=== PATIENT | female | born 1955 | race Caucasian/White ===

== ENCOUNTER 2016-04-05 17:48 | Emergency (ER) | payer OTHER ==
[~2016-04-05 17:48] MED LIST: ADVAIR; CALCIUM WITH D PO; D 3 PO; DIAZIDE PO; LORATADINE PO; PERC5TAB8 OR; SYNTHROID PO; VIACTIN PO; VISITAB5 PO
--- NOTE | 2016-04-05 18:39 | REP ---
CT study of the cervical spine without contrast: History: Trauma. Technique: Helical scanning is acquired and overlapping 2 mm high resolution axial images were generated and reviewed at bone and soft tissue window settings. Coronal and sagittal multiplanar re-formations images are generated. CT findings: There is no evidence of cervical spine element fracture. No skull base fracture is seen. Cervical vertebral body heights are preserved. Alignment is normal. Facet joints are normally aligned bilaterally at each cervical level on multiplanar re-formations images. There is no evidence of intraspinal or paraspinal hematoma. No extra vertebral abnormality is seen. Incidental note is made of a 12 mm benign hemangioma in the left side of the C7 vertebral body. This is unchanged from the December 28, [address] There are mild degenerative disc changes at C 05/06 and C4-5. There is osteoarthritis at the C1-2 level. Impression: Negative CT study of the cervical spine without contrast. No fracture seen. Stable 12 mm benign hemangioma in the left side of the C7 vertebral body. Mild degenerative disc changes. Signed by Miguel Bradley MD 04/05/2016 06:30 P
--- NOTE | 2016-04-05 18:41 | REP ---
Head CT without contrast: History: Trauma. Comparison study: October 09, 2007. A CT findings: Bone window settings demonstrate an intact bony calvarium. There is no evidence of skull fracture or incidental bony calvarial lesion. The visualized paranasal sinuses appear clear. No intraorbital abnormality is seen. On soft tissue window setting images; the lateral, third, and fourth ventricles are normal in size and position. Augustin-white differentiation pattern is normal above and below the tentorium. There are is no evidence of intracranial hemorrhage. No mass, edema, infarction, or midline shift is seen. No extra-axial fluid collection is appreciated. Impression: Negative noncontrast head CT. Signed by Miguel Bradley MD 04/05/2016 06:32 P
[2016-04-05] MEDS ORDERED: ADACEL/BOOSTRIX VACCINE (DIPHTH/PERTUSS/ACELL/TETANUS)0.5ML SYR (90715) As Ordered ONE (19:21)
--- NOTE | 2016-04-05 19:55 | EDDOCDS ---
Physician Documentation [facility] Name: Carlee Padgett Age: 60 yrs Sex: Female : 1955 Arrival Date: 04/05/2016 Time: 17:48 Bed TR7 Private MD: Christian Ware Abdul Disposition: 04/05/16 19:21 Discharged to Home/Self Care. Impression: Laceration without foreign body of scalp, Hemangioma of other sites - 12mm benign of left side of C7 Vertbral body, Contusion of unspecified part of head. - Condition is Stable. - Discharge Instructions: Facial or Scalp Contusion, Head Injury, Adult, Stitches, [place], or Adhesive Wound Closure. - Medication Reconciliation, Local Pharmacy Hours form. - Follow up: Christian Ware; When: Call to arrange an appointment; Reason: Recheck today's complaints, Continuance of care. - Problem is new. - Symptoms have improved. - Notes: cheryle (3) removed in 7 days please Historical: - Allergies: no known allergies; - Home Meds: 1. Synthroid 175 mcg Oral tab once daily 2. Hydrochlorothiazide Unknown Oral once daily 3. Vitamin D Oral daily 4. vitamin [id number] acid oral oral once daily - PMHx: Subarachnoid Bleed; Hypertension; Hypothyroidism; - PSHx: Lumpectomy; Tubal ligation; Hysterectomy; Tonsillectomy; - Immunization history:: Last tetanus immunization: < 10 years ago. - Family history: Not pertinent. - Social history: Smoking status: Patient states was never smoker of tobacco. No barriers to communication noted, The patient speaks fluent [place], Speaks appropriately for age. - : The pt / caregiver states he / she is not on anticoagulants. Home medication list is obtained from the patient. - Exposure Risk Screening:: None identified. Vital Signs: 04/05 17:50 BP 176 / 93 RA Sitting (auto/lg); Pulse 97; Resp 18; Temp 97.6(TE); Pulse Ox 98% on ar3 R/A; Weight 86.18 kg / 189.99 lbs (R); Height 5 ft. 3 in. (160.02 cm) (R); Pain 5/10; 19:49 BP 166 / 80; Pulse 69; Resp 16; Temp 97.3(T); Pulse Ox 97% on R/A; cz 17:50 Body Mass Index 33.66 (86.18 kg, 160.02 cm) ar3 Procedures: 19:19 Laceration repair:. mo1 Laceration: 19:19 Wound Repair of 2cm ( 0.8in ) full thickness laceration to right parietal area. Linear mo1 shaped.. Distal neuro/vascular/tendon intact. Anesthesia: None with None. Wound prep: Simple cleansing by provider, Wound irrigation with saline by provider, Wound explored minimally. Skin closed with 3 thin layer [place] using Staple gun. Patient tolerated well. MDM: 18:04 CT Head Without Contrast Ordered. EDMS 18:05 CT Spine,Cervical W/o Contrast Ordered. EDMS 19:18 Tetanus- Diptheria-Acellular Pertussis 0.5 ml IM once; Routine booster 10-64yrs, >64 mo1 with child contact [facility] ordered. 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 Exp: 04/29/2018. Lot #: [id number]. } Route: IM; Site: right deltoid; Signatures: Dispatcher [employer] James Roque RN RN cz O'Hagan, Michael, PA PA mo1 Corrina Wallis RN RN ead MTDD
--- NOTE | 2016-04-05 19:55 | EDDOCDS ---
Nurse's Notes [facility] Name: Carlee Padgett Age: 60 yrs Sex: Female : 1955 Arrival Date: 04/05/2016 Time: 17:48 Bed TR7 Private MD: Christian Ware Abdul Diagnosis: Laceration without foreign body of scalp;Hemangioma of other sites-12mm benign of left side of C7 Vertbral body;Contusion of unspecified part of head Presentation: 04/05 17:55 Presenting complaint: Patient states: "moving a weight thing and it had a bar on it ead that fell and hit my head." reports incident occurred at approx 1700 today. pt has laceration to top of head, bleeding controlled by pt. pt denies LOC. Denies headache or dizziness. Adult Sepsis Screening: The patient does not have new or worsening altered mentation. Patient's respiratory rate is less than 22. Systolic blood pressure is greater than 100. Patient has a qSOFA score of 0- Negative Sepsis Screen. Suicide/Homicide risk assessment- the patient denies having any suicidal and/or homicidal ideations and does not present with any other emotional, behavioral or mental health complaints. Status: Patient is not a services tech or dependent. Transition of care: patient was not received from another setting of care. 17:55 Acuity: PROSPER Level 4 ead 17:55 Method Of Arrival: Walkin/Carried/Asstd ead Triage Assessment: 17:59 General: Appears in no apparent distress, comfortable, well nourished, well groomed, ead Behavior is appropriate for age, cooperative, pleasant. Pain: Location: top of head Pain currently is 5 out of 10 on a pain scale. HIV screening NA for this visit Offered previously. Neurological: Level of Consciousness is awake, alert, obeys commands, Oriented to person, place, time. Neurological: Denies dizziness, headache. Respiratory: Airway is patent Respiratory effort is even, unlabored. Derm: Skin is pink, warm & dry. laceration to top of head. Historical: - Allergies: no known allergies; - Home Meds: 1. Synthroid 175 mcg Oral tab once daily 2. Hydrochlorothiazide Unknown Oral once daily 3. Vitamin D Oral daily 4. vitamin L80-lfazv acid oral oral once daily - PMHx: Subarachnoid Bleed; Hypertension; Hypothyroidism; - PSHx: Lumpectomy; Tubal ligation; Hysterectomy; Tonsillectomy; - Immunization history:: Last tetanus immunization: < 10 years ago. - Family history: Not pertinent. - Social history: Smoking status: Patient states was never smoker of tobacco. No barriers to communication noted, The patient speaks fluent Luxembourgish, Speaks appropriately for age. - : The pt / caregiver states he / she is not on anticoagulants. Home medication list is obtained from the patient. - Exposure Risk Screening:: None identified. Screenin:52 Screening information is obtained from the patient. Fall risk: No risks identified. cz Assistance ADL's: requires no assistance with activities of daily living. Abuse/DV Screen: The patient / caregiver reports he/she is: not in a situation that causes fear, pain or injury. Nutritional screening: No deficits noted. home support is adequate. Assessment: 19:52 Reassessment: alert female with head laceration repaired with cheryle no bleeding no cz complaints. Vital Signs: 17:50 BP 176 / 93 RA Sitting (auto/lg); Pulse 97; Resp 18; Temp 97.6(TE); Pulse Ox 98% on ar3 R/A; Weight 86.18 kg (R); Height 5 ft. 3 in. (160.02 cm) (R); Pain 5/10; 19:49 BP 166 / 80; Pulse 69; Resp 16; Temp 97.3(T); Pulse Ox 97% on R/A; cz 17:50 Body Mass Index 33.66 (86.18 kg, 160.02 cm) ar3 Vitals: 17:54 Log In Time: April 05, 2016 at 17:48. lr2 ED Course: 17:50 Patient visited by Hien Rodriguez PCA. ar3 17:50 Christian Ware is Private Physician. ar3 17:50 Patient moved to Waiting ar3 17:52 Patient visited by Hien Rodriguez PCA. ar3 17:52 Patient moved to Pre RCE ar3 17:56 Triage Initiated ead 18:44 Patient moved to Triage 2 ar3 18:55 Assist provider with laceration repair using cheryle. cz 19:05 Yoseph Lees PA is PHCP. mo1 19:05 Adithya Fuentes DO is Attending Physician. mo1 19:18 Patient visited by Yoseph Lees PA. mo1 19:19 Patient moved to cz 19:21 Christian Ware is Referral Physician. mo1 19:22 CT Spine,Cervical W/o Contrast Returned. EDMS 19:22 CT Head Without Contrast Returned. EDMS 19:48 Patient moved to TR7 cz 19:52 The patient / caregiver is instructed regarding the plan of care and ED course. cz 19:52 No IV's were initiated during this patient's visit. 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 Exp: 04/29/2018. Lot #: [id number]. } Route: IM; Site: right deltoid; Order Results: Radiology Order: CT Head Without Contrast Test: CT Head Without Contrast REASON FOR EXAMINATION: Trauma; Head CT without contrast:; ; History: Trauma.; ; Comparison study: October 09, 2007. A; ; CT findings: Bone window settings demonstrate an intact bony calvarium. There; is no evidence of skull fracture or incidental bony calvarial lesion. The; visualized paranasal sinuses appear clear. No intraorbital abnormality is seen.; On soft tissue window setting images; the lateral, third, and fourth ventricles; are normal in size and position. Augustin-white differentiation pattern is normal; above and below the tentorium. There are is no evidence of intracranial; hemorrhage. No mass, edema, infarction, or midline shift is seen. No; extra-axial fluid collection is appreciated.; ; Impression:; ; Negative noncontrast head CT.; ; ; Signed by; Miguel Bradley MD 04/05/2016 06:32 P; Radiology Order: CT Spine,Cervical W/o Contrast Test: CT Spine,Cervical W/o Contrast REASON FOR EXAMINATION: Trauma; CT study of the cervical spine without contrast:; ; History: Trauma.; ; Technique: Helical scanning is acquired and overlapping 2 mm high resolution; axial images were generated and reviewed at bone and soft tissue window settings.; Coronal and sagittal multiplanar re-formations images are generated.; ; CT findings: There is no evidence of cervical spine element fracture. No skull; base fracture is seen. Cervical vertebral body heights are preserved. Alignment; is normal. Facet joints are normally aligned bilaterally at each cervical level; on multiplanar re-formations images. There is no evidence of intraspinal or; paraspinal hematoma. No extra vertebral abnormality is seen. Incidental note is; made of a 12 mm benign hemangioma in the left side of the C7 vertebral body.; This is unchanged from the December 28, [address] There are mild; degenerative disc changes at C 05/06 and C4-5. There is osteoarthritis at the; C1-2 level.; ; Impression:; ; Negative CT study of the cervical spine without contrast. No fracture seen.; Stable 12 mm benign hemangioma in the left side of the C7 vertebral body. Mild; degenerative disc changes.; ; ; Signed by; Miguel Bradley MD 04/05/2016 06:30 P; Outcome: 18:55 Discharge Assessment: Patient awake, alert and oriented x 3. No cognitive and/or cz functional deficits noted. Patient verbalized understanding of disposition instructions. patient administered narcotics - no. The following High Risk Discharge criteria are identified: None. Discharged to home ambulatory, with family. Condition: stable. Discharge instructions given to patient, Instructed on discharge instructions, follow up and referral plans. Demonstrated understanding of instructions, Pt was receptive of discharge instructions/ teaching. CT Study completed. Property :Personal belongings accompany Pt. 19:21 Discharge ordered by Provider. mo1 19:54 Patient left the ED. cz Signatures: Dispatcher [employer] EDMS James Delarosa, RN Hien Aleman, [employer] MEASURES SEALER Yoseph Nunez PA PA mo1 Corrina Wallis,RN RN Samantha Enrique2 MTDD
--- NOTE | 2016-04-07 20:55 | EDDOCDS ---
Nurse's Notes [facility] Name: Carlee Padgett Age: 60 yrs Sex: Female : 1955 Arrival Date: 04/05/2016 Time: 17:48 Bed TR7 Private MD: Christian Ware Abdul Diagnosis: Laceration without foreign body of scalp;Hemangioma of other sites-12mm benign of left side of C7 Vertbral body;Contusion of unspecified part of head Presentation: 04/05 17:55 Presenting complaint: Patient states: "moving a weight thing and it had a bar on it ead that fell and hit my head." reports incident occurred at approx 1700 today. pt has laceration to top of head, bleeding controlled by pt. pt denies LOC. Denies headache or dizziness. Adult Sepsis Screening: The patient does not have new or worsening altered mentation. Patient's respiratory rate is less than 22. Systolic blood pressure is greater than 100. Patient has a qSOFA score of 0- Negative Sepsis Screen. Suicide/Homicide risk assessment- the patient denies having any suicidal and/or homicidal ideations and does not present with any other emotional, behavioral or mental health complaints. 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 Transition of care: patient was not received from another setting of care. 17:55 Acuity: PROSPER Level 4 ead 17:55 Method Of Arrival: Walkin/Carried/Asstd ead Triage Assessment: 17:59 General: Appears in no apparent distress, comfortable, well nourished, well groomed, ead Behavior is appropriate for age, cooperative, pleasant. Pain: Location: top of head Pain currently is 5 out of 10 on a pain scale. HIV screening NA for this visit Offered previously. Neurological: Level of Consciousness is awake, alert, obeys commands, Oriented to person, place, time. Neurological: Denies dizziness, headache. Respiratory: Airway is patent Respiratory effort is even, unlabored. Derm: Skin is pink, warm & dry. laceration to top of head. Historical: - Allergies: no known allergies; - Home Meds: 1. Synthroid 175 mcg Oral tab once daily 2. Hydrochlorothiazide Unknown Oral once daily 3. Vitamin D Oral daily 4. vitamin E05-tblgb acid oral oral once daily - PMHx: Subarachnoid Bleed; Hypertension; Hypothyroidism; - PSHx: Lumpectomy; Tubal ligation; Hysterectomy; Tonsillectomy; - Immunization history:: Last tetanus immunization: < 10 years ago. - Family history: Not pertinent. - Social history: Smoking status: Patient states was never smoker of tobacco. No barriers to communication noted, The patient speaks fluent Latvian, Speaks appropriately for age. - : The pt / caregiver states he / she is not on anticoagulants. Home medication list is obtained from the patient. - Exposure Risk Screening:: None identified. Screenin:52 Screening information is obtained from the patient. Fall risk: No risks identified. cz Assistance ADL's: requires no assistance with activities of daily living. Abuse/DV Screen: The patient / caregiver reports he/she is: not in a situation that causes fear, pain or injury. Nutritional screening: No deficits noted. home support is adequate. Assessment: 19:52 Reassessment: alert female with head laceration repaired with cheryle no bleeding no cz complaints. Vital Signs: 17:50 BP 176 / 93 RA Sitting (auto/lg); Pulse 97; Resp 18; Temp 97.6(TE); Pulse Ox 98% on ar3 R/A; Weight 86.18 kg (R); Height 5 ft. 3 in. (160.02 cm) (R); Pain 5/10; 19:49 BP 166 / 80; Pulse 69; Resp 16; Temp 97.3(T); Pulse Ox 97% on R/A; cz 17:50 Body Mass Index 33.66 (86.18 kg, 160.02 cm) ar3 Vitals: 17:54 Log In Time: April 05, 2016 at 17:48. lr2 ED Course: 17:50 Patient visited by Hien Rodriguez PCA. ar3 17:50 Christian Ware is Private Physician. ar3 17:50 Patient moved to Waiting ar3 17:52 Patient visited by Hien Rodriguez PCA. ar3 17:52 Patient moved to Pre RCE ar3 17:56 Triage Initiated ead 18:44 Patient moved to Triage 2 ar3 18:55 Assist provider with laceration repair using cheryle. cz 19:05 Yoseph Lees PA is PHCP. mo1 19:05 Adithya Fuentes DO is Attending Physician. mo1 19:18 Patient visited by Yoseph Lees PA. mo1 19:19 Patient moved to cz 19:21 Christian Ware is Referral Physician. mo1 19:22 CT Spine,Cervical W/o Contrast Returned. EDMS 19:22 CT Head Without Contrast Returned. EDMS 19:48 Patient moved to TR7 cz 19:52 The patient / caregiver is instructed regarding the plan of care and ED course. cz 19:52 No IV's were initiated during this patient's visit. cz 21:15 [facility] Payment Agreement was scanned into [employer] [facility] and attached to record. 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 Exp: 04/29/2018. Lot #: [id number]. } Route: IM; Site: right deltoid; Order Results: Radiology Order: CT Head Without Contrast Test: CT Head Without Contrast REASON FOR EXAMINATION: Trauma; Head CT without contrast:; ; History: Trauma.; ; Comparison study: October 09, 2007. A; ; CT findings: Bone window settings demonstrate an intact bony calvarium. There; is no evidence of skull fracture or incidental bony calvarial lesion. The; visualized paranasal sinuses appear clear. No intraorbital abnormality is seen.; On soft tissue window setting images; the lateral, third, and fourth ventricles; are normal in size and position. Augustin-white differentiation pattern is normal; above and below the tentorium. There are is no evidence of intracranial; hemorrhage. No mass, edema, infarction, or midline shift is seen. No; extra-axial fluid collection is appreciated.; ; Impression:; ; Negative noncontrast head CT.; ; ; Signed by; Miguel Bradley MD 04/05/2016 06:32 P; Radiology Order: CT Spine,Cervical W/o Contrast Test: CT Spine,Cervical W/o Contrast REASON FOR EXAMINATION: Trauma; CT study of the cervical spine without contrast:; ; History: Trauma.; ; Technique: Helical scanning is acquired and overlapping 2 mm high resolution; axial images were generated and reviewed at bone and soft tissue window settings.; Coronal and sagittal multiplanar re-formations images are generated.; ; CT findings: There is no evidence of cervical spine element fracture. No skull; base fracture is seen. Cervical vertebral body heights are preserved. Alignment; is normal. Facet joints are normally aligned bilaterally at each cervical level; on multiplanar re-formations images. There is no evidence of intraspinal or; paraspinal hematoma. No extra vertebral abnormality is seen. Incidental note is; made of a 12 mm benign hemangioma in the left side of the C7 vertebral body.; This is unchanged from the December 28, [address] There are mild; degenerative disc changes at C 05/06 and C4-5. There is osteoarthritis at the; C1-2 level.; ; Impression:; ; Negative CT study of the cervical spine without contrast. No fracture seen.; Stable 12 mm benign hemangioma in the left side of the C7 vertebral body. Mild; degenerative disc changes.; ; ; Signed by; Miguel Bradley MD 04/05/2016 06:30 P; Outcome: 18:55 Discharge Assessment: Patient awake, alert and oriented x 3. No cognitive and/or cz functional deficits noted. Patient verbalized understanding of disposition instructions. patient administered narcotics - no. The following High Risk Discharge criteria are identified: None. Discharged to home ambulatory, with family. Condition: stable. Discharge instructions given to patient, Instructed on discharge instructions, follow up and referral plans. Demonstrated understanding of instructions, Pt was receptive of discharge instructions/ teaching. CT Study completed. Property :Personal belongings accompany Pt. 19:21 Discharge ordered by Provider. mo1 19:54 Patient left the ED. cz Signatures: Dispatcher [employer] EDMS James Delarosa RN RN Hien Gallo, WAREHOUSE RECORD CLERK WAREHOUSE RECORD CLERK ar3 Yoseph Lees, PA PA mo1 Corrina Wallis,RN RN Eleanor Tai Laura lr2 Chart Complete MTDD
--- NOTE | 2016-04-07 20:55 | EDDOCDS ---
Physician Documentation [facility] Name: Carlee Padgett Age: 60 yrs Sex: Female : 1955 Arrival Date: 04/05/2016 Time: 17:48 Bed TR7 Private MD: Christian Ware Abdul Disposition: 04/05/16 19:21 Discharged to Home/Self Care. Impression: Laceration without foreign body of scalp, Hemangioma of other sites - 12mm benign of left side of C7 Vertbral body, Contusion of unspecified part of head. - Condition is Stable. - Discharge Instructions: Facial or Scalp Contusion, Head Injury, Adult, Stitches, Maxwell, or Adhesive Wound Closure. - Medication Reconciliation, Local Pharmacy Hours form. - Follow up: Christian Ware; When: Call to arrange an appointment; Reason: Recheck today's complaints, Continuance of care. - Problem is new. - Symptoms have improved. - Notes: cheryle (3) removed in 7 days please Historical: - Allergies: no known allergies; - Home Meds: 1. Synthroid 175 mcg Oral tab once daily 2. Hydrochlorothiazide Unknown Oral once daily 3. Vitamin D Oral daily 4. vitamin S74-koozh acid oral oral once daily - PMHx: Subarachnoid Bleed; Hypertension; Hypothyroidism; - PSHx: Lumpectomy; Tubal ligation; Hysterectomy; Tonsillectomy; - Immunization history:: Last tetanus immunization: < 10 years ago. - Family history: Not pertinent. - Social history: Smoking status: Patient states was never smoker of tobacco. No barriers to communication noted, The patient speaks fluent Burkinan, Speaks appropriately for age. - : The pt / caregiver states he / she is not on anticoagulants. Home medication list is obtained from the patient. - Exposure Risk Screening:: None identified. Vital Signs: 04/05 17:50 BP 176 / 93 RA Sitting (auto/lg); Pulse 97; Resp 18; Temp 97.6(TE); Pulse Ox 98% on ar3 R/A; Weight 86.18 kg / 189.99 lbs (R); Height 5 ft. 3 in. (160.02 cm) (R); Pain 5/10; 19:49 BP 166 / 80; Pulse 69; Resp 16; Temp 97.3(T); Pulse Ox 97% on R/A; cz 17:50 Body Mass Index 33.66 (86.18 kg, 160.02 cm) ar3 Procedures: 19:19 Laceration repair:. mo1 Laceration: 19:19 Wound Repair of 2cm ( 0.8in ) full thickness laceration to right parietal area. Linear mo1 shaped.. Distal neuro/vascular/tendon intact. Anesthesia: None with None. Wound prep: Simple cleansing by provider, Wound irrigation with saline by provider, Wound explored minimally. Skin closed with 3 thin layer Maxwell using Staple gun. Patient tolerated well. MDM: 18:04 CT Head Without Contrast Ordered. EDMS 18:05 CT Spine,Cervical W/o Contrast Ordered. EDMS 19:18 Tetanus- Diptheria-Acellular Pertussis 0.5 ml IM once; Routine booster 10-64yrs, >64 mo1 with child contact [employer] ordered. 21:15 [facility] Payment Agreement was scanned into [employer] and attached to record. erik 21:15 Financial registration complete. gjb Administered Medications: 19:23 Drug: Tetanus- Diptheria-Acellular Pertussis 0.5 ml [diphth,pertussis(acel),tetanus 2.5 cz Lf unit-8 mcg-5 Lf/0.5mL IM syringe (0.5 mL)] {Pelt Dropper: [employer]. Exp: 04/29/2018. Lot #: [id number]. } Route: IM; Site: right deltoid; Signatures: [facility] James Delarosa RN RN cz O'Hagan, Michael, PA PA mo1 Corrina Wallis,RN Eleanor Silva The chart was reviewed and I authenticate all verbal orders and agree with the evaluation and treatment provided.Attachments: 21:15 [facility] Payment Agreement gjb Chart Complete MTDD
--- NOTE | 2016-04-07 20:55 | EDDOCDS ---
Physician Documentation [facility] Name: Carlee Padgett Age: 60 yrs Sex: Female : 1955 Arrival Date: 04/05/2016 Time: 17:48 Bed TR7 Private MD: Christian Ware Abdul Disposition: 04/05/16 19:21 Discharged to Home/Self Care. Impression: Laceration without foreign body of scalp, Hemangioma of other sites - 12mm benign of left side of C7 Vertbral body, Contusion of unspecified part of head. - Condition is Stable. - Discharge Instructions: Facial or Scalp Contusion, Head Injury, Adult, Stitches, [place], or Adhesive Wound Closure. - Medication Reconciliation, Local Pharmacy Hours form. - Follow up: Christian Ware; When: Call to arrange an appointment; Reason: Recheck today's complaints, Continuance of care. - Problem is new. - Symptoms have improved. - Notes: cheryle (3) removed in 7 days please Historical: - Allergies: no known allergies; - Home Meds: 1. Synthroid 175 mcg Oral tab once daily 2. Hydrochlorothiazide Unknown Oral once daily 3. Vitamin D Oral daily 4. vitamin H10-srxfj acid oral oral once daily - PMHx: Subarachnoid Bleed; Hypertension; Hypothyroidism; - PSHx: Lumpectomy; Tubal ligation; Hysterectomy; Tonsillectomy; - Immunization history:: Last tetanus immunization: < 10 years ago. - Family history: Not pertinent. - Social history: Smoking status: Patient states was never smoker of tobacco. No barriers to communication noted, The patient speaks fluent [place], Speaks appropriately for age. - : The pt / caregiver states he / she is not on anticoagulants. Home medication list is obtained from the patient. - Exposure Risk Screening:: None identified. Vital Signs: 04/05 17:50 BP 176 / 93 RA Sitting (auto/lg); Pulse 97; Resp 18; Temp 97.6(TE); Pulse Ox 98% on ar3 R/A; Weight 86.18 kg / 189.99 lbs (R); Height 5 ft. 3 in. (160.02 cm) (R); Pain 5/10; 19:49 BP 166 / 80; Pulse 69; Resp 16; Temp 97.3(T); Pulse Ox 97% on R/A; cz 17:50 Body Mass Index 33.66 (86.18 kg, 160.02 cm) ar3 Procedures: 19:19 Laceration repair:. mo1 Laceration: 19:19 Wound Repair of 2cm ( 0.8in ) full thickness laceration to right parietal area. Linear mo1 shaped.. Distal neuro/vascular/tendon intact. Anesthesia: None with None. Wound prep: Simple cleansing by provider, Wound irrigation with saline by provider, Wound explored minimally. Skin closed with 3 thin layer [place] using Staple gun. Patient tolerated well. MDM: 18:04 CT Head Without Contrast Ordered. EDMS 18:05 CT Spine,Cervical W/o Contrast Ordered. EDMS 19:18 Tetanus- Diptheria-Acellular Pertussis 0.5 ml IM once; Routine booster 10-64yrs, >64 mo1 with child contact [place] [employer] ordered. 21:15 [facility] Payment Agreement was scanned into [employer] and attached to record. erik 21:15 Financial registration complete. 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 Exp: 04/29/2018. Lot #: [id number]. } Route: IM; Site: right deltoid; Signatures: [facility] James Delarosa RN RN cz O'Hagan, Michael, PA PA mo1 Corrina Wallis,RN Eleanor Silva The chart was reviewed and I authenticate all verbal orders and agree with the evaluation and treatment provided.Attachments: 21:15 [facility] Payment Agreement gjb Chart Complete MTDD
== END 2016-04-05 19:54 | disposition home or self-care (01) ==
LOC: M ED 17:48
DX: S01.01XA Laceration without foreign body of scalp, initial encounter (principal); S00.03XA Contusion of scalp, initial encounter; I10 Essential (primary) hypertension; E03.9 Hypothyroidism, unspecified; Z79.899 Other long term (current) drug therapy; W20.8XXA Other cause of strike by thrown, projected or falling object, initial encounter; Y92.099 Unspecified place in other non-institutional residence as the place of occurrence of the external cause; Y93.89 Activity, other specified; Y99.9 Unspecified external cause status

== ENCOUNTER → 2016-12-22 | Outpatient (CLI) | payer OTHER ==
[2016-12-22 09:46] LABS: MEAN CORPUSCULAR HEMOGLOBIN 29.7 pg (27.0-33.0); MEAN CORPUSCULAR HGB CONC 33.2 g/dl (32.0-36.5); MEAN CORPUSCULAR VOLUME 89.4 fl (80.0-96.0); PLATELET COUNT, AUTOMATED 267 10^3/uL (150-450); RED CELL DISTRIBUTION WIDTH 12.3 % (11.5-14.5); WHITE BLOOD COUNT 4.7 10^3/uL (4.0-10.0)
--- NOTE | 2016-12-22 09:50 | REP ---
Clinical: Hypertension . Comparison: 03/11/2015 . Technique: PA and lateral. Findings: The mediastinum and cardiac silhouette are normal. The lung de leon are clear and without acute consolidation, effusion, or pneumothorax. The skeletal structures are intact and normal. Impression: 1. No acute cardiopulmonary process. Signed by Humberto Wright MD 12/22/2016 09:41 A
[2016-12-22 10:17] LABS: ALBUMIN 3.9 GM/DL (3.2-5.2); ALBUMIN/GLOBULIN RATIO 1.34 (1.00-1.93); ALKALINE PHOSPHATASE 88 U/L (45-117); ALT/SGPT 26 U/L (12-78); ANION GAP 4 MEQ/L (8-16); AST/SGOT 14 U/L (7-37); BILIRUBIN,TOTAL 0.4 MG/DL (0.2-1.0); BLOOD UREA NITROGEN 19 MG/DL (7-18); CALCIUM LEVEL 9.2 MG/DL (8.8-10.2); CARBON DIOXIDE LEVEL 33 MEQ/L (21-32); CHLORIDE LEVEL 104 MEQ/L (98-107); CHOLESTEROL LEVEL 210 MG/DL (<200); CREATININE FOR GFR 0.76 MG/DL (0.55-1.02); GLOMERULAR FILTRATION RATE > 60.0 (>45); GLUCOSE, FASTING 94 MG/DL (80-110); POTASSIUM SERUM 3.7 MEQ/L (3.5-5.1); SODIUM LEVEL 141 MEQ/L (136-145); TOTAL PROTEIN 6.8 GM/DL (6.4-8.2); TRIGLYCERIDES LEVEL 104 MG/DL (<150)
--- NOTE | 2016-12-23 00:58 | ECGEPIP ---
Stationary ECG Study [facility] Test Date: 2016-12-22 Pat Name: JOHN MARTIN Department: Room: - Gender: F Substance Abuse Nurse: ROSAURA : 1955 Requested By: Christian Washburn Order Number: [id number] Reading MD: Dino White Measurements Intervals [place] Rate: 67 P: 35 MS: 166 QRS: 4 QRSD: 79 T: -1 QT: 399 QTc: 423 Interpretive Statements SINUS RHYTHM Nonspecific ST-T abnormality Compared to the last 3 tracings in the system, no significant changes Electronically Signed On 12-23-2016 0:58:11 EST by Dino White
== END ==
LOC: M LAB 09:05
PROVIDERS: ATTEND Family Medicine
DX: I10 Essential (primary) hypertension (principal)

== ENCOUNTER 2017-01-17 09:31 | Day surgery (SDC) | payer OTHER ==
[~2017-01-17] VITALS: Ht 160 cm; Wt 92.0 kg
[2017-01-17] MEDS ORDERED: LEVO175T2 (09:39)
[2017-01-17] MEDS ORDERED: TRIA37.53 (09:39)
[2017-01-17] MEDS ORDERED: NS 1,000 ML IV ONE (10:00)
[2017-01-17] MEDS ORDERED: ONDANSETRON 4MG/2ML VIAL (J2405) IV ONE (10:00)
--- NOTE | 2017-01-17 10:30 | REP ---
CT of the abdomen pelvis without IV or bowel contrast: There are no comparisons. There is a 7 x 10 mm calculus in the right ureter just inferior to the right sacroiliac articulation. There is marked right hydronephrosis and hydroureter. There is no right renal calculus. There is a left renal nonobstructive 7 mm calculus posteriorly at the mid pole. There is no left ureteral calculus. There is a 2.7 cm left renal cortical cysts. The bladder is incompletely distended and the bladder wall cannot be accurately evaluated by CT. No bladder calculi are identified. There is a hysterectomy. The vaginal cuff and adnexa are unremarkable. Surgical clips in the adnexa bilaterally. The visualized lung de leon are unremarkable. The unenhanced hepatic parenchyma is homogeneous except for a nonspecific in 9 mm hypodensity in the right lobe, likely a cyst. The gallbladder, pancreas, spleen, adrenals and abdominal aorta are unremarkable. The bowel and mesentery are unremarkable. Pelvis: There is no ascites or adenopathy. The pelvic bowel loops are unremarkable. A hysterectomy and bilateral adnexal surgical clips are identified as described previously. Impression: There is a 7 x 10 ml calcification in the distal right ureter and right hydronephrosis. There are no right renal calculi. There is a 7 ml nonobstructive left renal calculus. No left ureteral calculi. No bladder calculi. There is a left renal cortical cyst. There is a hysterectomy and there are surgical clips in the adnexa bilaterally. Signed by Jarvis Anne MD 01/17/2017 10:22 A
[2017-01-17 10:42] LABS: BASO % 0.3 % (0.0-1.0); EOS # 0.1 10^3/uL (0.0-0.50); EOS % 0.6 % (0.0-3.0); IMMATURE GRANULOCYTE % 0.3 % (0-0); LYMPH # 0.8 10^3/uL (1.5-4.5); MEAN CORPUSCULAR HEMOGLOBIN 30.3 pg (27.0-33.0); MEAN CORPUSCULAR HGB CONC 34.2 g/dl (32.0-36.5); MEAN CORPUSCULAR VOLUME 88.6 fl (80.0-96.0); MONO # 0.5 10^3/uL (0.0-0.8); MONO % 5.6 % (0.0-5.0); NEUTROPHILS # 8.2 10^3/uL (1.8-7.7); NEUTROPHILS % 85.2 % (36.0-66.0); PLATELET COUNT, AUTOMATED 312 10^3/uL (150-450); RED CELL DISTRIBUTION WIDTH 12.4 % (11.5-14.5); WHITE BLOOD COUNT 9.7 10^3/uL (4.0-10.0)
[2017-01-17] MEDS: MORPHINE 2 MG/ML 1ML SYRINGE IV PRN ×2 (10:45→12:23)
[2017-01-17 12:01] LABS: ANION GAP 7 MEQ/L (8-16); BLOOD UREA NITROGEN 22 MG/DL (7-18); CALCIUM LEVEL 9.1 MG/DL (8.8-10.2); CARBON DIOXIDE LEVEL 29 MEQ/L (21-32); CHLORIDE LEVEL 104 MEQ/L (98-107); GLOMERULAR FILTRATION RATE > 60.0 (>45); GLUCOSE, FASTING 129 MG/DL (80-110); SODIUM LEVEL 140 MEQ/L (136-145)
--- NOTE | 2017-01-17 14:31 | ER ---
DATE OF CONSULTATION: 01/17/2017 REASON FOR CONSULTATION: Obstructing right ureteral calculi measuring 7 x 10 mm. HISTORY OF PRESENT ILLNESS: The patient is a 61-year-old female who came through the emergency room this morning with very severe right flank pain and vomiting. The pain began Tuesday morning, but seemed to go away. It started this morning and was unremitting in nature so she came to the emergency room. A CT scan of the abdomen and pelvis was done which shows small bilateral nephrolithiasis but a 7 x 10 calcification in the distal right ureter with right hydronephrosis. There is a 7 mm nonobstructing left renal calculi and also a 2.7 cm left renal cortical cyst. The patient does have a history of a kidney stone back in 1990 where she underwent ureteroscopy and stone basketing. A stent was not placed post procedurally and it sounds like she had obstructive uropathy and became septic. She has not had any stones since then. The patient denies any gross hematuria, dysuria, problems with recurrent urinary tract infections, or other irritative or obstructive voiding symptoms. PAST MEDICAL HISTORY: High blood pressure. Hypothyroidism. Breast cancer status post radiation and chemotherapy Thymoma. Corneal dysplasia. PAST SURGICAL HISTORY: Thymoma removal. Hysterectomy. Left lumpectomy. MEDICATIONS: Synthroid and Thiazide. ALLERGIES: CODEINE makes her nauseous. SOCIAL HISTORY: She quit smoking cigarettes and 1990. She is . She drinks alcohol rarely. FAMILY HISTORY: Noncontributory. PHYSICAL EXAMINATION: This is a well-developed, well-nourished female in the emergency room lying on a bed in no apparent respiratory distress. She is alert and oriented times three. She is afebrile. Her pulse is 54. Her blood pressure is 126/71 and her respiratory rate is 16. Her head is normocephalic, atraumatic. Her eyes are pupils equal, round, and reactive to light. Her neck is supple. There is no significant supraclavicular or cervical adenopathy. Her heart has a regular rate and rhythm. Her lungs are clear to auscultation and percussion. She has no CVA tenderness on exam now and her abdomen is otherwise soft and nontender without any significant rebound, guarding or tenderness. Her extremities show no cyanosis, clubbing or edema. LABORATORY DATA: Her white blood count is 9.7. Her H H is 12.8/37.4 and her platelets are 312. Her BUN is 22 and her creatinine is 0.9 and a fasting glucose was 129. A urinalysis showed a 5 red blood cells and one white blood cell per high power field. CT scan of the abdomen and pelvis showed a 7 x 10 mm distal right stone and a 7 mm nonobstructive left renal stone with a 2.7 cm left simple renal cortical cyst. DISCUSSION: I discussed these findings at length with Carlee her family in the emergency room today. We discussed different options including watchful waiting to see whether the stone could pass but because of its size, it has a very low likelihood. We also discussed bringing her to the operating room for right ureteroscopy, laser lithotripsy, and stent placement. She opted for surgical management. We discussed exactly how the procedure is done and what to expect both pre and post procedurally. We discussed the major risks of the procedure which included but was not limited to the risks of general anesthesia, reactions to medication, bleeding, infection, injury to the system inability to remove the stone and the need for further surgical management. The patient also understands and stent will be placed and that this can be uncomfortable post procedurally. She also understands the need for getting the stent removed in the office. IMPRESSION: 1. 10 mm distal right ureteral stone with hydroureteronephrosis. 2. Nonobstructing left renal stone. 3. Benign renal cortical cyst. 4. Past medical history of breast cancer but in remission for the left 12 years, high blood pressure, hypothyroidism, and removal of the benign thymoma. PLAN: The patient will go to the operating room for cystoscopy, right ureteroscopy, laser lithotripsy and stent placement.
[2017-01-17] MEDS ORDERED: MAGN1TAB25 PO (14:48)
[2017-01-17] MEDS ORDERED: CALC600T60 PO (14:48)
[2017-01-17] MEDS ORDERED: VITA-112 PO (14:48)
[2017-01-17] MEDS ORDERED: GLUC1CAP10 PO (14:48)
[2017-01-17] MEDS ORDERED: LEVO175T2 PO (14:48)
[2017-01-17] MEDS ORDERED: TRIA37.53 PO (14:48)
[2017-01-17] MEDS ORDERED: OCUVTAB PO (14:48)
[2017-01-17 17:20] VITALS: BP 150/82
[2017-01-17 19:30] VITALS: BP 158/79
[2017-01-17] MEDS ORDERED: LIDOCAINE 2% INJ 100 MG/5 ML SDV (FOR ANES.) As Ordered ONE (20:54)
[2017-01-17] MEDS ORDERED: PROPOFOL 200 MG/20 ML VIAL As Ordered ONE (20:54)
[2017-01-17] MEDS ORDERED: MIDAZOLAM INJ 2 MG/2 ML VIAL (J2250) As Ordered ONE (20:54)
[2017-01-17] MEDS ORDERED: fentaNYL 100 MCG/2 ML INJECTION (J3010) As Ordered ONE (20:54)
[2017-01-17] MEDS ORDERED: ceFAZolin 2 GM/D5W 50 ML IV BAG (J0690 PER 500MG) As Ordered ONE (21:01)
[2017-01-17] MEDS ORDERED: CONRAY-60 60% 50ML VIAL (Q9961) As Ordered ONE (21:01)
[2017-01-17] MEDS ORDERED: ONDANSETRON 4MG/2ML VIAL (J2405) As Ordered ONE (21:34)
[2017-01-17] MEDS ORDERED: LR 1,000 ML IV SCH (22:30)
[2017-01-17] MEDS ORDERED: ONDANSETRON 4MG/2ML VIAL (J2405) IV PRN (22:30)
[2017-01-17] MEDS ORDERED: fentaNYL 100 MCG/2 ML INJECTION (J3010) IV PRN (22:30)
[2017-01-17] MEDS ORDERED: PERCOCET 5MG/325MG TAB PO PRN (22:30)
[2017-01-17 23:10] VITALS: BP 171/82
[2017-01-17 23:45] VITALS: BP 164/87
[2017-01-18] MEDS ORDERED: PERCOCET 5MG/325MG TAB PO PRN ×2
[2017-01-18 01:00] VITALS: BP 152/75
[2017-01-18 04:00] VITALS: BP 125/65
--- NOTE | 2017-01-18 07:19 | RO ---
DATE OF PROCEDURE: 01/17/2017 PREOPERATIVE DIAGNOSIS: 10 x 7 mm right sacroiliac area stone. POSTOPERATIVE DIAGNOSIS: 10 x 7 mm right sacroiliac area stone. PROCEDURE: Cystoscopy, right ureteroscopy, right laser lithotripsy and right ureteral stent placement. SURGEON: Jaci Durant MD TANBARK PEELER: ANESTHESIA: General. MEDICATIONS: Ancef 2 grams preoperatively. DRAINS: #6-Burmese double-J ureteral stent. SPECIMENS: None. HISTORY OF PRESENT ILLNESS: The patient is a 61-year-old female who came through the emergency room today complaining of severe right flank pain. A CT scan of the abdomen and pelvis was done which showed a 10 x 7 mm right ureteral stone just inferior to the right sacroiliac articulation. She had a history of needing ureteroscopy many years ago and it sounds like there was a problem surgically and she ended up with septicemia and was in the hospital for quite some time. At this point, because of the size of the stone, it was recommended that the patient be brought to the operating room for a cystoscopy, right ureteroscopy and right laser lithotripsy with attempted stone basketing. All different options, alternatives, risks, and benefits were discussed and informed consent was obtained in both verbal and written form. PROCEDURE: The patient was brought into the operating room. Sequential compression devices were in place and preoperative antibiotics were given. Anesthesia was induced. She was then placed in low lithotomy position and careful attention was paid that her pressure points were well padded and protected. She was then prepped and draped in the usual fashion. Next, a #21-Burmese cystoscope was inserted. The urethra was noted to be open without any evidence of lesions or strictures. Upon entering the bladder both ureteral orifices were seen. There was no evidence of stones, erythematous patches, lesions or other significant abnormalities. At this point a 0.035 guidewire was placed in the right ureteral orifice up to the kidney and this was left as a safety wire. Next, a rigid ureteroscope was passed. The distal ureter right under where the sacroiliac notch is, showed very significant scarring and possibly even mild ureteral obstruction. I was able to push through this with the ureteroscope, but did have some subureteral mucosal damage, then the stone was well seen right above this area. At this point, a laser fiber was placed and using the dusting setting the stone was broken into multiple very small fragments. I did attempt to stone basket this and pull is through, but that area of scarring was too small to allow the stone to come through. I went back in with a laser fiber and just broke the stone into teeny tiny pieces that were all able to pass. It is possible that some of the stone fragments did go into the ureteral mucosa submucosally, so these may be seen on CT scan in the future. At this point, a #6-Burmese double-J ureteral stent was placed over the wire and there was a good curl seen in the right renal pelvis and down in the bladder. The patient tolerated the procedure well and was returned to the recovery room in stable condition.
[2017-01-18 08:00] VITALS: BP 160/82
== END 2017-01-18 10:35 | disposition home or self-care (01) ==
LOC: M ED 09:31 → M SDC 14:00 → M PED 17:18 → M SDC 01-18 10:35
PROVIDERS: ATTEND Specialist
DX: N20.1 Calculus of ureter (principal); I10 Essential (primary) hypertension; E03.9 Hypothyroidism, unspecified; Z88.5 Allergy status to narcotic agent; Z79.899 Other long term (current) drug therapy; Z90.710 Acquired absence of both cervix and uterus; Z87.891 Personal history of nicotine dependence; Z85.3 Personal history of malignant neoplasm of breast; Z92.21 Personal history of antineoplastic chemotherapy; Z92.3 Personal history of irradiation
CPT/HCPCS: 36415; 52356; 74176; 74430; 80048; 81001; 83605; 85025; 96374; 96375; 99284; C1769; C1894; C2617; J0690; J2250; J2405; J3010; Q9961

== ENCOUNTER → 2017-02-15 | Outpatient (CLI) | payer OTHER ==
[2017-02-15 13:39] LABS: HEMATOCRIT 36.7 % (36.0-47.0); HEMOGLOBIN 12.2 g/dl (12.0-16.0); MEAN CORPUSCULAR HEMOGLOBIN 29.3 pg (27.0-33.0); MEAN CORPUSCULAR HGB CONC 33.2 g/dl (32.0-36.5); MEAN CORPUSCULAR VOLUME 88.2 fl (80.0-96.0); PLATELET COUNT, AUTOMATED 278 10^3/uL (150-450); RED BLOOD COUNT 4.16 10^6/uL (4.00-5.40); RED CELL DISTRIBUTION WIDTH 12.1 % (11.5-14.5); WHITE BLOOD COUNT 4.1 10^3/uL (4.0-10.0)
[2017-02-15 13:50] LABS: PROTHROMBIN TIME 13.3 SECONDS (12.4-14.5)
[2017-02-15 14:23] LABS: ANION GAP 5 MEQ/L (8-16); BLOOD UREA NITROGEN 17 MG/DL (7-18); CALCIUM LEVEL 9.4 MG/DL (8.8-10.2); CARBON DIOXIDE LEVEL 31 MEQ/L (21-32); CHLORIDE LEVEL 103 MEQ/L (98-107); CREATININE FOR GFR 0.82 MG/DL (0.55-1.02); GLOMERULAR FILTRATION RATE > 60.0 (>45); GLUCOSE, FASTING 104 MG/DL (80-110); POTASSIUM SERUM 4.1 MEQ/L (3.5-5.1); SODIUM LEVEL 139 MEQ/L (136-145)
== END ==
LOC: M LAB 12:56
DX: N20.0 Calculus of kidney (principal)

== ENCOUNTER 2017-02-24 08:45 | Day surgery (SDC) | payer OTHER ==
[2017-02-24] MEDS ORDERED: MIDAZOLAM INJ 2 MG/2 ML VIAL (J2250) As Ordered (09:53)
[2017-02-24] MEDS ORDERED: PROPOFOL 200 MG/20 ML VIAL As Ordered (09:53)
[2017-02-24] MEDS ORDERED: fentaNYL 100 MCG/2 ML INJECTION (J3010) As Ordered (09:53)
[2017-02-24] MEDS ORDERED: LIDOCAINE 2% INJ 100 MG/5 ML SDV (FOR ANES.) As Ordered (09:53)
[2017-02-24] MEDS: LR 1,000 ML IV (10:48)
[2017-02-24] MEDS: LIDOCAINE 2% 5ML JELLY UROJET As Ordered (11:48)
== END 2017-02-24 13:30 | disposition home or self-care (01) ==
LOC: M SDC 13:30
DX: N20.0 Calculus of kidney (principal); I10 Essential (primary) hypertension; E03.9 Hypothyroidism, unspecified; L71.9 Rosacea, unspecified; Z88.5 Allergy status to narcotic agent; Z91.040 Latex allergy status; Z79.899 Other long term (current) drug therapy; Z90.710 Acquired absence of both cervix and uterus; Z92.21 Personal history of antineoplastic chemotherapy; Z85.3 Personal history of malignant neoplasm of breast; Z87.891 Personal history of nicotine dependence
CPT/HCPCS: 50590

== ENCOUNTER → 2017-03-17 | Outpatient (CLI) | payer OTHER | LOC: M SMT 08:30 | DX: N20.0 Calculus of kidney (principal) | CPT/HCPCS: 82360 ==

== ENCOUNTER → 2017-07-14 | Outpatient (CLI) | payer OTHER ==
[~2017-07-14] MED LIST changes: -ADVAIR; -CALCIUM WITH D PO; -D 3 PO; -DIAZIDE PO; -LORATADINE PO; -PERC5TAB8 OR; +PROHANCE 279.3MG/ML 15ML VIAL (A9576) As Ordered; +PROHANCE 279.3MG/ML 5ML VIAL (A9576) As Ordered; -SYNTHROID PO; -VIACTIN PO; -VISITAB5 PO
== END ==
LOC: M RAD 10:45
DX: I67.81 Acute cerebrovascular insufficiency (principal); G31.9 Degenerative disease of nervous system, unspecified
CPT/HCPCS: A9576

== ENCOUNTER 2017-08-25 20:45 | Emergency (ER) | payer OTHER ==
[2017-08-25 22:15] LABS: BASO # 0.1 10^3/uL (0.0-0.2); BASO % 0.7 % (0.0-1.0); EOS # 0.1 10^3/uL (0.0-0.50); EOS % 2.1 % (0.0-3.0); HEMOGLOBIN 14.2 g/dl (12.0-15.5); IMMATURE GRANULOCYTE % 0.1 % (0-3.0); LYMPH # 1.3 10^3/uL (1.5-4.5); LYMPH % 19.4 % (24.0-44.0); MEAN CORPUSCULAR HEMOGLOBIN 29.3 pg (27.0-33.0); MEAN CORPUSCULAR HGB CONC 33.8 g/dl (32.0-36.5); MEAN CORPUSCULAR VOLUME 86.8 fl (80.0-96.0); MONO # 0.5 10^3/uL (0.0-0.8); MONO % 6.9 % (0.0-5.0); NEUTROPHILS # 4.8 10^3/uL (1.8-7.7); NEUTROPHILS % 70.8 % (36.0-66.0); PLATELET COUNT, AUTOMATED 308 10^3/uL (150-450); RED BLOOD COUNT 4.84 10^6/uL (4.00-5.40); RED CELL DISTRIBUTION WIDTH 12.1 % (11.5-14.5); WHITE BLOOD COUNT 6.8 10^3/uL (4.0-10.0)
[2017-08-25] MEDS: NS 1,000 ML IV (22:15)
[2017-08-25 22:32] LABS: ALBUMIN 4.1 GM/DL (3.2-5.2); ALKALINE PHOSPHATASE 111 U/L (45-117); ALT/SGPT 24 U/L (12-78); ANION GAP 7 MEQ/L (8-16); AST/SGOT 15 U/L (7-37); BILIRUBIN,DIRECT < 0.1 MG/DL (0.0-0.2); BILIRUBIN,TOTAL 0.4 MG/DL (0.2-1.0); BLOOD UREA NITROGEN 21 MG/DL (7-18); CALCIUM LEVEL 10.1 MG/DL (8.8-10.2); CARBON DIOXIDE LEVEL 30 MEQ/L (21-32); CHLORIDE LEVEL 101 MEQ/L (98-107); CREATININE FOR GFR 0.88 MG/DL (0.55-1.30); GLOMERULAR FILTRATION RATE > 60.0 (>45); GLUCOSE, FASTING 119 MG/DL (70-100); LIPASE 237 U/L (73-393); POTASSIUM SERUM 3.4 MEQ/L (3.5-5.1); SODIUM LEVEL 138 MEQ/L (136-145); TOTAL PROTEIN 8.2 GM/DL (6.4-8.2)
[2017-08-25] MEDS: diazePAM 2 MG TAB PO (23:36)
[2017-08-26] MEDS ORDERED: METAL LOCK LOOP XX (00:44)
== END 2017-08-26 01:16 | disposition home or self-care (01) ==
LOC: M ED 08-26 01:16
DX: H81.399 Other peripheral vertigo, unspecified ear (principal); I10 Essential (primary) hypertension; E03.9 Hypothyroidism, unspecified; Z79.899 Other long term (current) drug therapy; Z88.5 Allergy status to narcotic agent; Z91.040 Latex allergy status
CPT/HCPCS: 70450

== ENCOUNTER 2017-09-01 14:40 | Inpatient (IN) | payer OTHER ==
[2017-09-01] MEDS: NS 1,000 ML IV (17:50)
[2017-09-01 18:02] LABS: HEMATOCRIT 47.4 % (36.0-47.0); HEMOGLOBIN 16.3 g/dl (12.0-15.5); MEAN CORPUSCULAR HEMOGLOBIN 29.9 pg (27.0-33.0); MEAN CORPUSCULAR HGB CONC 34.4 g/dl (32.0-36.5); MEAN CORPUSCULAR VOLUME 86.8 fl (80.0-96.0); PLATELET COUNT, AUTOMATED 368 10^3/uL (150-450); RED BLOOD COUNT 5.46 10^6/uL (4.00-5.40); RED CELL DISTRIBUTION WIDTH 12.2 % (11.5-14.5); WHITE BLOOD COUNT 8.8 10^3/uL (4.0-10.0)
[2017-09-01 18:12] LABS: ALBUMIN 4.4 GM/DL (3.2-5.2); ALBUMIN/GLOBULIN RATIO 1.13 (1.00-1.93); ALKALINE PHOSPHATASE 111 U/L (45-117); ALT/SGPT 31 U/L (12-78); ANION GAP 12 MEQ/L (8-16); AST/SGOT 16 U/L (7-37); BILIRUBIN,TOTAL 0.6 MG/DL (0.2-1.0); BLOOD UREA NITROGEN 28 MG/DL (7-18); CARBON DIOXIDE LEVEL 27 MEQ/L (21-32); CHLORIDE LEVEL 101 MEQ/L (98-107); CREATININE FOR GFR 0.96 MG/DL (0.55-1.30); GLOMERULAR FILTRATION RATE > 60.0 (>45); GLUCOSE, FASTING 103 MG/DL (70-100); POTASSIUM SERUM 3.8 MEQ/L (3.5-5.1); SODIUM LEVEL 140 MEQ/L (136-145); TOTAL PROTEIN 8.3 GM/DL (6.4-8.2)
[2017-09-01] MEDS: LORazepam 2 MG/ML VIAL (J2060) IV (18:23)
[2017-09-01 19:10] LABS: TROPONIN I < 0.02 NG/ML (< 0.10)
[2017-09-01 19:11] LABS: CK-MB VALUE MASS 1.2 NG/ML (<3.6); CPK CREATINE PHOSPHOKINASE 39 U/L (26-192); MB/CK RELATIVE INDEX 3.07 (< OR =4)
[2017-09-01] MEDS: ASPIRIN 81 MG CHEW TABLET PO (19:36)
[2017-09-01] MEDS ORDERED: ACETAMINOPHEN TAB 650MG DOSE (2X325MG) PO (20:00)
[2017-09-01 20:41] LABS: FREE THYROXINE INDEX 6.2 % (1.3-4.8); T UPTAKE 38 % (30-39); THYROID STIMULATING HORMONE 0.547 uIU/ML (0.358-3.740); THYROXINE (T4) 16.3 UG/DL (4.5-12.0)
[2017-09-01 20:54] LABS: VITAMIN B12 LEVEL > 2000 PG/ML (247-911)
[2017-09-01] MEDS ORDERED: diazePAM 2 MG TAB PO (21:30)
[2017-09-01] MEDS ORDERED: POLYVINYL ALCOHOL OPHTH SOLN 15 ML(LIQUITEARS) OU (21:45)
[2017-09-01] MEDS ORDERED: ONDANSETRON 4MG/2ML VIAL (J2405) As Ordered (21:47)
[2017-09-01] MEDS: ONDANSETRON 4MG/2ML VIAL (J2405) IV (21:49)
[2017-09-01] MEDS: SENOKOT S TAB PO (22:10)
[2017-09-01] MEDS: HEPARIN SOD (PORCINE) 5000 UNITS/ML VIAL SC (22:10)
[2017-09-01] MEDS: KCL 20MEQ in NS 1000ML 1,000 ML IV (22:11)
[2017-09-01] MEDS: TOPIRAMATE (TopAMAX) 25 MG TAB PO (22:39)
[2017-09-01 23:01] LABS: CK-MB VALUE MASS 1.4 NG/ML (<3.6); CPK CREATINE PHOSPHOKINASE 35 U/L (26-192); TROPONIN I < 0.02 NG/ML (< 0.10)
[2017-09-02] MEDS ORDERED: LEVOTHYROXINE 25MCG TABLET (0.025MG) PO (06:00)
[2017-09-02] MEDS ORDERED: LEVOTHYROXINE 150MCG TABLET (0.15MG) PO (06:00)
[2017-09-02] MEDS: LEVOTHYROXINE 125MCG TABLET (0.125MG) PO (06:02)
[2017-09-02 06:04] LABS: HEMATOCRIT 43.4 % (36.0-47.0); HEMOGLOBIN 14.7 g/dl (12.0-15.5); MEAN CORPUSCULAR HEMOGLOBIN 29.3 pg (27.0-33.0); MEAN CORPUSCULAR HGB CONC 33.9 g/dl (32.0-36.5); MEAN CORPUSCULAR VOLUME 86.6 fl (80.0-96.0); PLATELET COUNT, AUTOMATED 270 10^3/uL (150-450); RED BLOOD COUNT 5.01 10^6/uL (4.00-5.40); RED CELL DISTRIBUTION WIDTH 12.1 % (11.5-14.5); WHITE BLOOD COUNT 7.4 10^3/uL (4.0-10.0)
[2017-09-02 06:27] LABS: ANION GAP 8 MEQ/L (8-16); BLOOD UREA NITROGEN 26 MG/DL (7-18); CALCIUM LEVEL 8.6 MG/DL (8.8-10.2); CARBON DIOXIDE LEVEL 25 MEQ/L (21-32); CHLORIDE LEVEL 107 MEQ/L (98-107); CPK CREATINE PHOSPHOKINASE 36 U/L (26-192); CREATININE FOR GFR 0.72 MG/DL (0.55-1.30); GLOMERULAR FILTRATION RATE > 60.0 (>45); GLUCOSE, FASTING 88 MG/DL (70-100); MAGNESIUM LEVEL 1.9 MG/DL (1.8-2.4); POTASSIUM SERUM 3.3 MEQ/L (3.5-5.1); SODIUM LEVEL 140 MEQ/L (136-145); TROPONIN I < 0.02 NG/ML (< 0.10)
[2017-09-02 06:28] LABS: CK-MB VALUE MASS 1.2 NG/ML (<3.6); MB/CK RELATIVE INDEX 3.33 (< OR =4)
[2017-09-02] MEDS: KCL 20MEQ in NS 1000ML 1,000 ML IV (07:19)
[2017-09-02] MEDS: NS 1,000 ML IV (08:11)
[2017-09-02] MEDS: SENOKOT S TAB PO ×2 (09:30→21:56)
[2017-09-02] MEDS: VITAMIN D 1,000 INTERNATIONAL UNITS TABLET PO (09:30)
[2017-09-02] MEDS: CYANOCOBALAMIN 500 MCG TAB PO (09:30)
[2017-09-02] MEDS: OCUVITE 1 TAB PO (09:31)
[2017-09-02] MEDS: POTASSIUM CHLORIDE 10 MEQ SR TABLET PO (09:31)
[2017-09-02] MEDS: amLODIPine 5 MG TAB PO (09:31)
[2017-09-02] MEDS: ASPIRIN 81 MG ENTERIC TAB PO (09:31)
[2017-09-02] MEDS: TOPIRAMATE (TopAMAX) 25 MG TAB PO ×2 (09:31→21:56)
[2017-09-02] MEDS: HEPARIN SOD (PORCINE) 5000 UNITS/ML VIAL SC ×2 (09:32→21:56)
[2017-09-02] MEDS: ONDANSETRON 4MG/2ML VIAL (J2405) IV (10:32)
[2017-09-03] MEDS: LEVOTHYROXINE 125MCG TABLET (0.125MG) PO (05:26)
[2017-09-03 06:13] LABS: HEMATOCRIT 37.4 % (36.0-47.0); MEAN CORPUSCULAR HEMOGLOBIN 29.7 pg (27.0-33.0); MEAN CORPUSCULAR VOLUME 87.6 fl (80.0-96.0); PLATELET COUNT, AUTOMATED 223 10^3/uL (150-450); RED BLOOD COUNT 4.27 10^6/uL (4.00-5.40); RED CELL DISTRIBUTION WIDTH 12.2 % (11.5-14.5); WHITE BLOOD COUNT 5.8 10^3/uL (4.0-10.0)
[2017-09-03 06:22] LABS: HEMOGLOBIN 12.7 g/dl (12.0-15.5)
[2017-09-03 06:56] LABS: ANION GAP 10 MEQ/L (8-16); BLOOD UREA NITROGEN 17 MG/DL (7-18); CALCIUM LEVEL 8.5 MG/DL (8.8-10.2); CARBON DIOXIDE LEVEL 24 MEQ/L (21-32); CHLORIDE LEVEL 109 MEQ/L (98-107); CREATININE FOR GFR 0.68 MG/DL (0.55-1.30); GLOMERULAR FILTRATION RATE > 60.0 (>45); GLUCOSE, FASTING 87 MG/DL (70-100); MAGNESIUM LEVEL 1.8 MG/DL (1.8-2.4); POTASSIUM SERUM 3.3 MEQ/L (3.5-5.1); SODIUM LEVEL 143 MEQ/L (136-145)
[2017-09-03] MEDS: PROCHLORPERAZINE 5 MG TAB (S0183) PO (08:31)
[2017-09-03] MEDS: OCUVITE 1 TAB PO (08:59)
[2017-09-03] MEDS: VITAMIN D 1,000 INTERNATIONAL UNITS TABLET PO (08:59)
[2017-09-03] MEDS: ASPIRIN 81 MG ENTERIC TAB PO (08:59)
[2017-09-03] MEDS: SENOKOT S TAB PO (08:59)
[2017-09-03] MEDS: TOPIRAMATE (TopAMAX) 25 MG TAB PO (08:59)
[2017-09-03] MEDS: amLODIPine 5 MG TAB PO (09:00)
[2017-09-03] MEDS: HEPARIN SOD (PORCINE) 5000 UNITS/ML VIAL SC (09:00)
[2017-09-03] MEDS: POTASSIUM CHLORIDE 10 MEQ SR TABLET PO (11:26)
== END 2017-09-03 13:10 | disposition home or self-care (01) | DRG 149 ==
LOC: M MS5PR 09-03 02:55 → M ED 14:40 → M ED INP 19:59 → M PCU 21:42
DX: H81.13 Benign paroxysmal vertigo, bilateral (principal); R11.2 Nausea with vomiting, unspecified; E86.0 Dehydration; F03.90 Unspecified dementia, unspecified severity, without behavioral disturbance, psychotic disturbance, mood disturbance, and anxiety; I10 Essential (primary) hypertension; E03.9 Hypothyroidism, unspecified; Z85.3 Personal history of malignant neoplasm of breast; Z79.899 Other long term (current) drug therapy

== ENCOUNTER 2017-09-07 07:54 | Outpatient (RCR) | payer OTHER | END 2017-10-07 | LOC: M PT 07:54 | DX: Z51.89 Encounter for other specified aftercare (principal); R42 Dizziness and giddiness (principal) | CPT/HCPCS: 97112 ==

== ENCOUNTER → 2017-10-18 | Outpatient (REF) | payer OTHER ==
[2017-10-18 20:23] LABS: BASO % 0.7 % (0.0-1.0); EOS # 0.1 10^3/uL (0.0-0.50); EOS % 3.1 % (0.0-3.0); HEMATOCRIT 38.4 % (36.0-47.0); HEMOGLOBIN 12.5 g/dl (12.0-15.5); IMMATURE GRANULOCYTE % 0.2 % (0-3.0); LYMPH # 0.9 10^3/uL (1.5-4.5); MEAN CORPUSCULAR HEMOGLOBIN 29.9 pg (27.0-33.0); MEAN CORPUSCULAR HGB CONC 32.6 g/dl (32.0-36.5); MEAN CORPUSCULAR VOLUME 91.9 fl (80.0-96.0); MONO # 0.3 10^3/uL (0.0-0.8); MONO % 6.2 % (0.0-5.0); NEUTROPHILS # 3.2 10^3/uL (1.8-7.7); NEUTROPHILS % 69.8 % (36.0-66.0); PLATELET COUNT, AUTOMATED 291 10^3/uL (150-450); RED BLOOD COUNT 4.18 10^6/uL (4.00-5.40); WHITE BLOOD COUNT 4.5 10^3/uL (4.0-10.0)
[2017-10-18 20:40] LABS: ESTIMATED AVERAGE GLUCOSE 114 MG/DL (60-110); HEMOGLOBIN A1c 5.6 %
[2017-10-18 20:47] LABS: ALBUMIN/GLOBULIN RATIO 1.21 (1.00-1.93); ALKALINE PHOSPHATASE 106 U/L (45-117); ALT/SGPT 95 U/L (12-78); ANION GAP 9 MEQ/L (8-16); AST/SGOT 60 U/L (7-37); BILIRUBIN,TOTAL 0.3 MG/DL (0.2-1.0); BLOOD UREA NITROGEN 16 MG/DL (7-18); CALCIUM LEVEL 9.3 MG/DL (8.8-10.2); CARBON DIOXIDE LEVEL 24 MEQ/L (21-32); CHLORIDE LEVEL 107 MEQ/L (98-107); CREATININE FOR GFR 0.88 MG/DL (0.55-1.30); FOLATE 5.7 NG/ML; GLOMERULAR FILTRATION RATE > 60.0 (>45); GLUCOSE, FASTING 166 MG/DL (70-100); POTASSIUM SERUM 3.7 MEQ/L (3.5-5.1); RHEUMATOID FACTOR QUANT < 10.0 IU/ML (<15.0); SODIUM LEVEL 140 MEQ/L (136-145); THYROID STIMULATING HORMONE 0.011 uIU/ML (0.358-3.740); TOTAL 25(OH) VITAMIN D 44.4 NG/ML (30.0-100.0); TOTAL PROTEIN 7.3 GM/DL (6.4-8.2)
[2017-10-18 20:58] LABS: VITAMIN B12 LEVEL > 2000 PG/ML
[2017-10-18 21:04] LABS: ERYTHROCYTE SEDIMENTATION RATE 23 mm/hr (0-30)
[2017-10-22 08:19] LABS: ANCA-ATYPICAL <1:20 titer (Neg:<1:20); ANTI DOUBLE STRAND-DNA AB <1 IU/mL (0-9); ANTINUCLEAR ANTIBODIES DIRECT Negative (Negative); CYTOPLASMIC NEUTROP AB ANCA-C <1:20 titer (Neg:<1:20); PERINUCLEAR AB ANCA-P <1:20 titer (Neg:<1:20); SJOGREN'S ANTI SS-A <0.2 AI (0.0-0.9); SJOGREN'S ANTI SS-B <0.2 AI (0.0-0.9); VITAMIN B1 LEVEL WHOLE BLOOD 97.6 nmol/L (66.5-200.0); VITAMIN E(ALPHA TOCOPHEROL) 12.2 mg/L (9.0-29.0); VITAMIN E(GAMMA TOCOPHEROL) 0.5 mg/L (0.5-4.9)
[2017-10-24 15:04] LABS: ALBUMIN % 60.3 % (55.8-66.1); ALPHA-1-GLOBULIN % 4.7 % (2.9-4.9); ALPHA-1-GLOBULINS 0.34 GM/DL (0.17-0.41); ALPHA-2-GLOBULINS 0.85 GM/DL (0.42-0.99); ALPHA-2-GLOBULINS % 11.7 % (7.1-11.8); BETA-1-GLOBULINS 0.39 GM/DL (0.28-0.60); BETA-1-GLOBULINS % 5.3 % (4.7-7.2); BETA-2-GLOBULINS 0.35 GM/DL (0.19-0.55); BETA-2-GLOBULINS % 4.8 % (3.2-6.5); GAMMA GLOBULIN % 13.2 % (11.1-18.8); GAMMA GLOBULINS 0.96 GM/DL (0.65-1.58)
== END ==
LOC: M LABNEURO 14:09
DX: F09 Unspecified mental disorder due to known physiological condition (principal)

== ENCOUNTER → 2018-01-28 | Outpatient (CLI) | payer OTHER ==
[~2018-01-28] MED LIST changes: +ADVAIR; +AMLO5TAB6 PO; +AMOX500C; +CALC1TAB74 PO; +CALC600T60 PO; +CALCIUM WITH D PO; +D 3 PO; +D-CA1KIT XX; +DIAZIDE PO; +DOXY-350 PO; +GLUC15009 PO; +GLUC1CAP10 PO; +LEVO175T2; +LEVO175T2 PO; +LORATADINE PO; +MAGN1TAB25 PO; +MECL-68 PO; +METF500T13 PO; +METO37.5 PO; +OCUVTAB PO; +PERC5TAB8 OR; +PROC10TA4; +PROC10TA4 PO; -PROHANCE 279.3MG/ML 15ML VIAL (A9576) As Ordered; -PROHANCE 279.3MG/ML 5ML VIAL (A9576) As Ordered; +REFR0.5D8 OU; +SYNTHROID PO; +TOPA1TAB PO; +TRIA37.53; +TRIA37.53 PO; +VALI2TAB PO; +VIACTIN PO; +VISITAB5 PO; +VITA-112 PO; +VITA-193 PO; +VITA200015 PO
[2018-01-28 09:39] LABS: HEMATOCRIT 34.2 % (36.0-47.0); HEMOGLOBIN 11.8 g/dl (12.0-15.5); MEAN CORPUSCULAR HGB CONC 34.5 g/dl (32.0-36.5); MEAN CORPUSCULAR VOLUME 89.8 fl (80.0-96.0); PLATELET COUNT, AUTOMATED 288 10^3/uL (150-450); RED BLOOD COUNT 3.81 10^6/uL (4.00-5.40); WHITE BLOOD COUNT 4.2 10^3/uL (4.0-10.0)
[2018-01-28 10:00] LABS: HEMOGLOBIN A1c 10.8 %
[2018-01-28 12:57] LABS: ALBUMIN 3.8 GM/DL (3.2-5.2); ALT/SGPT 25 U/L (12-78); BILIRUBIN,TOTAL 0.6 MG/DL (0.2-1.0); BLOOD UREA NITROGEN 18 MG/DL (7-18); CALCIUM LEVEL 8.8 MG/DL (8.8-10.2); CARBON DIOXIDE LEVEL 27 MEQ/L (21-32); CHLORIDE LEVEL 104 MEQ/L (98-107); CHOLESTEROL LEVEL 189 MG/DL (<200); CHOLESTEROL RISK RATIO 2.863 (<5); CREATININE FOR GFR 0.96 MG/DL (0.55-1.30); GLOMERULAR FILTRATION RATE > 60.0 (>45); GLUCOSE, FASTING 362 MG/DL (70-100); HDL CHOLESTEROL 66 MG/DL (>40); LDL CHOLESTEROL 101 MG/DL (<100); NON-HDL-C 123 MG/DL; POTASSIUM SERUM 3.7 MEQ/L (3.5-5.1); SODIUM LEVEL 141 MEQ/L (136-145); TOTAL PROTEIN 6.9 GM/DL (6.4-8.2); TRIGLYCERIDES LEVEL 111 MG/DL (<150)
[2018-01-30 07:57] LABS: TOTAL 25(OH) VITAMIN D 37.6 NG/ML (30.0-100.0)
== END ==
LOC: M LAB 09:01
PROVIDERS: ATTEND Family Medicine
DX: I10 Essential (primary) hypertension (principal); E11.9 Type 2 diabetes mellitus without complications; R53.83 Other fatigue

== ENCOUNTER 2018-02-03 11:53 | Emergency (ER) | payer OTHER ==
[~2018-02-03] VITALS: Ht 160 cm; Wt 84.1 kg
[~2018-02-03 11:53] MED LIST changes: -D-CA1KIT XX; -METF500T13 PO
[2018-02-03 12:29] LABS: VENOUS BASE EXCESS -3.8 (-2.0-2.0); VENOUS HCO3 21.7 MEQ/L (23.0-27.0); VENOUS O2 SATURATION 80.2 % (60.0-80.0); VENOUS PARTIAL PRESSURE CO2 41.1 mmHg (38.0-50.0); VENOUS PARTIAL PRESSURE O2 44.1 mmHg (30.0-50.0); VENOUS PH 7.341 UNITS (7.330-7.430)
[2018-02-03 12:30] LABS: BASO % 0.6 % (0.0-1.0); EOS % 1.2 % (0.0-3.0); HEMATOCRIT 35.3 % (36.0-47.0); HEMOGLOBIN 12.2 g/dl (12.0-15.5); LYMPH # 0.7 10^3/uL (1.5-4.5); LYMPH % 19.6 % (24.0-44.0); MEAN CORPUSCULAR HEMOGLOBIN 30.4 pg (27.0-33.0); MEAN CORPUSCULAR HGB CONC 34.6 g/dl (32.0-36.5); MONO # 0.4 10^3/uL (0.0-0.8); MONO % 12.7 % (0.0-5.0); NEUTROPHILS # 2.2 10^3/uL (1.8-7.7); NEUTROPHILS % 65.6 % (36.0-66.0); PLATELET COUNT, AUTOMATED 212 10^3/uL (150-450); RED BLOOD COUNT 4.01 10^6/uL (4.00-5.40); WHITE BLOOD COUNT 3.3 10^3/uL (4.0-10.0)
[2018-02-03 13:00] LABS: HEMOGLOBIN A1c 11.1 %
[2018-02-03 13:29] LABS: BILIRUBIN,DIRECT 0.2 MG/DL (0.0-0.2); BILIRUBIN,TOTAL 0.7 MG/DL (0.2-1.0); CALCIUM LEVEL 9.1 MG/DL (8.8-10.2); CREATININE FOR GFR 1.05 MG/DL (0.55-1.30); FREE THYROXINE INDEX 3.4 % (1.3-4.8); GLOMERULAR FILTRATION RATE 56.2 (>45); POTASSIUM SERUM 3.7 MEQ/L (3.5-5.1); THYROID STIMULATING HORMONE 12.7 uIU/ML (0.358-3.740); THYROXINE (T4) 9.6 UG/DL (4.5-12.0); TOTAL PROTEIN 7.1 GM/DL (6.4-8.2)
--- NOTE | 2018-02-03 13:40 | REP ---
PORTABLE CHEST X-RAY: Single view. HISTORY: Diabetic ketoacidosis. COMPARISON STUDY: July 20, 2017. FINDINGS: The patient is status post prior median sternotomy. There are surgical clips in the left axillary soft tissues as well. EKG electrodes are seen. Cardiomegaly is observed unchanged from the July 20, 2017 prior chest x-ray. There is no evidence of pleural effusion, infiltrate, or atelectasis. Pulmonary vasculature is not increased. IMPRESSION: : Mildly prominent heart. Prior sternotomy and left axillary surgery. Otherwise no acute disease. Electronically Signed by Miguel Bradley MD 02/03/2018 04:14 P
[2018-02-03] MEDS ORDERED: NS 1,000 ML IV ONE ×2 (14:00)
--- NOTE | 2018-02-03 15:30 | ECGEPIP ---
Stationary ECG Study [facility] Test Date: 2018-02-03 Pat Name: JOHN MARTIN Department: Room: - Gender: F Medical Office Clerk: TC : 1955 Requested By: Renée Zamudio Order Number: [id number] Reading MD: Leona Smith Measurements Intervals [place] Rate: 80 P: 19 CT: 165 QRS: -6 QRSD: 87 T: -13 QT: 357 QTc: 413 Interpretive Statements SINUS RHYTHM PRWP MODERATE VOLTAGE CRITERIA FOR LVH, Left atrial enlargement RESIDUAL ANT ST T WAVE ABNORMALITY BUT IMPROVEMENT COMPARED WITH 09/01/17 Electronically Signed On 02-03-2018 15:29:47 EST by Leona Smith
[2018-02-03] MEDS ORDERED: metFORMIN (GLUCOPHAGE) 500 MG TAB PO ONE (16:15)
[2018-02-03] MEDS ORDERED: METF500T13 PO (16:40)
[2018-02-03 16:53] VITALS: BP 145/88
[2018-02-03] MEDS ORDERED: D-CA1KIT XX (16:54)
== END 2018-02-03 17:11 | disposition home or self-care (01) ==
LOC: M ED 11:53
DX: E11.65 Type 2 diabetes mellitus with hyperglycemia (principal); I10 Essential (primary) hypertension; E07.9 Disorder of thyroid, unspecified; Z79.899 Other long term (current) drug therapy; Z88.5 Allergy status to narcotic agent; Z91.040 Latex allergy status; Z87.891 Personal history of nicotine dependence

== ENCOUNTER → 2018-05-17 | Outpatient (CLI) | payer OTHER ==
[~2018-05-17] MED LIST changes: +D-CA1KIT XX; -MAGN1TAB25 PO; +MAGN1TAB26 PO; +METF500T13 PO
[2018-05-17 09:48] LABS: HEMATOCRIT 37.9 % (36.0-47.0); HEMOGLOBIN 12.6 g/dl (12.0-15.5); MEAN CORPUSCULAR HEMOGLOBIN 30.5 pg (27.0-33.0); MEAN CORPUSCULAR HGB CONC 33.2 g/dl (32.0-36.5); MEAN CORPUSCULAR VOLUME 91.8 fl (80.0-96.0); PLATELET COUNT, AUTOMATED 249 10^3/uL (150-450); RED BLOOD COUNT 4.13 10^6/uL (4.00-5.40); WHITE BLOOD COUNT 3.7 10^3/uL (4.0-10.0)
[2018-05-17 10:21] LABS: ALBUMIN 3.9 GM/DL (3.2-5.2); ALT/SGPT 22 U/L (12-78); BILIRUBIN,TOTAL 0.5 MG/DL (0.2-1.0); BLOOD UREA NITROGEN 19 MG/DL (7-18); CALCIUM LEVEL 9.2 MG/DL (8.8-10.2); CARBON DIOXIDE LEVEL 27 MEQ/L (21-32); CHLORIDE LEVEL 104 MEQ/L (98-107); CHOLESTEROL LEVEL 255 MG/DL (<200); CHOLESTEROL RISK RATIO 4.047 (<5); CREATININE FOR GFR 0.79 MG/DL (0.55-1.30); GLOMERULAR FILTRATION RATE > 60.0 (>45); GLUCOSE, FASTING 273 MG/DL (70-100); HDL CHOLESTEROL 63 MG/DL (>40); LDL CHOLESTEROL 162 MG/DL (<100); NON-HDL-C 192 MG/DL; POTASSIUM SERUM 4.5 MEQ/L (3.5-5.1); SODIUM LEVEL 139 MEQ/L (136-145); THYROXINE (T4) 7.1 UG/DL (4.5-12.0); TOTAL PROTEIN 6.7 GM/DL (6.4-8.2); TOTAL T3 50.6 NG/DL (60.0-181.0); TRIGLYCERIDES LEVEL 149 MG/DL (<150)
[2018-05-17 10:27] LABS: HEMOGLOBIN A1c 12.1 %
== END ==
LOC: M LAB 09:13
PROVIDERS: ATTEND Family Medicine
DX: E03.9 Hypothyroidism, unspecified (principal); E11.9 Type 2 diabetes mellitus without complications; I10 Essential (primary) hypertension

== ENCOUNTER → 2018-08-21 | Outpatient (REF) | payer OTHER ==
[~2018-08-21] MED LIST changes: +CYAN500T9 PO; -MECL-68 PO; +MECL1TAB31 PO; -VITA-193 PO
== END ==
LOC: M LABDRAW1 10:22
PROVIDERS: ATTEND Internal Medicine Endocrinology, Diabetes & Metabolism
DX: E11.65 Type 2 diabetes mellitus with hyperglycemia (principal)

== ENCOUNTER → 2018-08-21 | Outpatient (CLI) | payer OTHER ==
[2018-08-21 07:37] LABS: HEMOGLOBIN A1c 14.1 %
[2018-08-21 07:50] LABS: THYROID STIMULATING HORMONE 1.14 uIU/ML (0.358-3.740)
== END ==
LOC: M LAB 06:08
PROVIDERS: ATTEND Family Medicine
DX: E03.9 Hypothyroidism, unspecified (principal); E11.9 Type 2 diabetes mellitus without complications

== ENCOUNTER → 2018-12-26 | Outpatient (REF) | payer MEDICARE, OTHER ==
[~2018-12-26] MED LIST changes: +MECL-68 PO; -MECL1TAB31 PO
[2018-12-26 18:41] LABS: BLOOD UREA NITROGEN 14 MG/DL (7-18); CREATININE FOR GFR 0.88 MG/DL (0.55-1.30); GLOMERULAR FILTRATION RATE > 60.0 (>45)
== END ==
LOC: M LABNEURO 11:41
PROVIDERS: ATTEND Psychiatry & Neurology Neurology
DX: I10 Essential (primary) hypertension (principal)

== ENCOUNTER 2019-06-15 02:06 | Inpatient (IN) | payer MEDICARE, OTHER ==
[2019-06-15] VITALS (18 sets, daily range): BP systolic 93–115; BP diastolic 51–69
[~2019-06-15] VITALS: Ht 167.6 cm; Wt 74.3 kg
[~2019-06-15 02:06] MED LIST changes: -MECL-68 PO; +MECL1TAB31 PO
[2019-06-15] MEDS ORDERED: INSULIN HUMAN REGULAR 100 UNITS in NS 99 ML IV SCH ×3 (02:45→04:45)
[2019-06-15] MEDS ORDERED: HumuLIN R (REGULAR) INSULIN (NovoLIN R) **100U/ML** PER UNIT IV ONE ×2 (02:45→04:45)
[2019-06-15] MEDS ORDERED: NS 1,000 ML IV ONE ×4 (02:45→05:15)
[2019-06-15] MEDS ORDERED: INSULIN IV RATE CHANGE DOCUMENTATION ML/HR XX SCH ×3 (02:45→04:45)
[2019-06-15 02:50] LABS: VENOUS BASE EXCESS -30.9 (-2.0-2.0); VENOUS HCO3 2.7 MEQ/L (23.0-27.0); VENOUS O2 SATURATION 95.5 % (60.0-80.0); VENOUS PARTIAL PRESSURE CO2 17.8 mmHg (38.0-50.0); VENOUS PARTIAL PRESSURE O2 100.9 mmHg (30.0-50.0); VENOUS PH 6.806 UNITS (7.330-7.430); VENOUS STANDARD HCO3 4.5 MEQ/L; VENOUS TOTAL CO2 3.3 MEQ/L (24.0-28.0)
[2019-06-15 02:53] LABS: BASO # 0.1 10^3/uL (0.0-0.2); BASO % 0.6 % (0.0-1.0); EOS % 0.1 % (0.0-3.0); HEMATOCRIT 44.9 % (36.0-47.0); HEMOGLOBIN 12.8 g/dl (12.0-15.5); LYMPH # 2.3 10^3/uL (1.5-5.0); LYMPH % 10.2 % (24.0-44.0); MEAN CORPUSCULAR HGB CONC 28.5 g/dl (32.0-36.5); MEAN CORPUSCULAR VOLUME 105.4 fl (80.0-96.0); MONO % 8.8 % (0.0-5.0); NEUTROPHILS % 78.8 % (36.0-66.0); PLATELET COUNT, AUTOMATED 478 10^3/uL (150-450); RED BLOOD COUNT 4.26 10^6/uL (4.00-5.40); WHITE BLOOD COUNT 22.8 10^3/uL (4.0-10.0)
[2019-06-15 03:17] LABS: HEMOGLOBIN A1c 12.4 %
[2019-06-15 03:26] LABS: ABG BASE EXCESS -30.8 (-2.0-2.0); ABG HCO3 2.2 MEQ/L (22.0-26.0); ABG O2 SATURATION 98.2 % (95.0-99.0); ABG PARTIAL PRESSURE CO2 13.5 mmHg (35.0-45.0); ABG PARTIAL PRESSURE O2 142.3 mmHg (75.0-100.0); ABG STANDARD HCO3 4.3 MEQ/L (22.0-26.0); ABG TOTAL CO2 2.6 MEQ/L (23.0-31.0); ABG pH (ARTERIAL) 6.828 UNITS (7.350-7.450)
[2019-06-15] MEDS ORDERED: SODIUM BICARBONATE 8.4% INJ 50 ML SYRINGE IV STA (03:32)
[2019-06-15 03:36] LABS: ACETONE/KETONE > 46.00 MG/DL (<2.81); ALBUMIN 4.1 GM/DL (3.2-5.2); ALT/SGPT 20 U/L (12-78); BILIRUBIN,DIRECT 0.2 MG/DL (0.0-0.2); BILIRUBIN,TOTAL 0.6 MG/DL (0.2-1.0); BLOOD UREA NITROGEN 52 MG/DL (7-18); CALCIUM LEVEL 9.5 MG/DL (8.8-10.2); CARBON DIOXIDE LEVEL 4 MEQ/L (21-32); CHLORIDE LEVEL 89 MEQ/L (98-107); CPK CREATINE PHOSPHOKINASE 36 U/L (26-192); CREATININE FOR GFR 2.42 MG/DL (0.55-1.30); ETHYL ALCOHOL (ETHANOL) < 0.003 % (0.000-0.010); FREE THYROXINE INDEX 2.6 % (1.3-4.8); GLOMERULAR FILTRATION RATE 21.4 (>45); SODIUM LEVEL 128 MEQ/L (136-145); T UPTAKE 36 % (30-39); THYROXINE (T4) 7.3 UG/DL (4.5-12.0); TOTAL PROTEIN 7.3 GM/DL (6.4-8.2)
[2019-06-15 03:37] LABS: GLUCOSE, FASTING 1053 MG/DL (70-100)
[2019-06-15] MEDS ORDERED: POTASSIUM CHLORIDE 10 MEQ SR TABLET PO ONE (03:45)
[2019-06-15] MEDS ORDERED: KCL 10MEQ/100ML SWI (KRUN) 10 MEQ in IV 1 EA IV ONE (03:45)
[2019-06-15] MEDS ORDERED: HumuLIN R (REGULAR) INSULIN (NovoLIN R) **100U/ML** PER UNIT IV STA (03:47)
[2019-06-15] MEDS ORDERED: VITAD1000T PO (04:06)
[2019-06-15] MEDS ORDERED: AMLO5TAB6 PO (04:06)
[2019-06-15] MEDS ORDERED: TOUJ1.2I SC (04:06)
[2019-06-15] MEDS ORDERED: MECL12.589 PO (04:06)
[2019-06-15] MEDS ORDERED: HUMA100I5 SC (04:06)
[2019-06-15] MEDS ORDERED: SYNT150T PO (04:06)
[2019-06-15] MEDS ORDERED: LISI10TA4 PO (04:06)
[2019-06-15] MEDS ORDERED: SODIUM BICARBONATE IV ONE ×2 (04:30→06:45)
[2019-06-15 05:02] LABS: VENOUS BASE EXCESS -27.9 (-2.0-2.0); VENOUS HCO3 3.2 MEQ/L (23.0-27.0); VENOUS O2 SATURATION 96.7 % (60.0-80.0); VENOUS PARTIAL PRESSURE CO2 16.2 mmHg (38.0-50.0); VENOUS PARTIAL PRESSURE O2 103.6 mmHg (30.0-50.0); VENOUS PH 6.917 UNITS (7.330-7.430); VENOUS STANDARD HCO3 5.3 MEQ/L; VENOUS TOTAL CO2 3.7 MEQ/L (24.0-28.0)
--- NOTE | 2019-06-15 05:05 | HPEPDOC ---
[facility] Medical History & Physical Date of Admission June 15, 2019 Date of Service: June 15, 2019 Primary Care Physician: Christian Ware Attending Physician: JESUS GUPTA MD History and Physical TIME OF SERVICE: 535AM CC time 45min CHIEF COMPLAINT: confusion HISTORY OF PRESENT ILLNESS: The majority of the history was obtained from and the patient's daughter who was at the bedside. This is a 63 yr old F who was brought to the ER by her daughter because she was noted to be walking around the house confused and opening drawers. Prior to that she spend the majority of the day sleeping and had been vomiting. During my assessment the patient was lethargic but denied having any chest pain, shortness of breath or joint pain. Her main c/o was of thirst. She was not able to give specifics about what happened prior to her arrival in the hospital. REVIEW OF SYSTEMS: negative except as listed in HPI PAST MEDICAL/ SURGICAL HISTORY: IDDM2 Chronic HTN Thymoma Subarachnoid hemorrhage Hysterectomy Tonsillectomy Tubal ligation previous records mention dementia but per daughter said that the patient's hx of AMS in the past is due to uncontrolled DM according to the patient's daughter her mother has never had an PA or CVA SOCIAL HISTORY: - Tobacco quit several years ago - Alcohol - Drugs + lives with one of her daughters FAMILY HISTORY: HTN Pre-DM ALLERGIES: Please see below. HOME MEDICATIONS: Please see below. PHYSICAL EXAMINATION: Vital Signs Date Time Temp Pulse Resp B/P (MAP) Pulse Ox O2 Delivery O2 Flow Rate FiO2 06/15/19 02:07 97.0 06/15/19 02:15 107/60 (76) 06/15/19 02:16 120 100 06/15/19 02:20 32 06/15/19 02:45 Room Air GENERAL APPEARANCE: listless HEENT: NCAT / mucus membranes very dry / mild conjuctival injection CARDIOVASCULAR: tachycardic / NMRG LUNGS: CTAB on RA ABDOMEN: soft / she grimaces w palpation of the epigastric region MUSCULOSKELETAL: GILBERTO in all 4 extremities /able to lift arms and legs off of bed : gray in place draining clear yellow urine NEUROLOGICAL: pupils reactive to light / speech not dysarthric PSYCHIATRIC: lethargic / able to understand and follow simple commands / oriented to person, place, month and year but thought Otoniel is president LABORATORY DATA: 06/15/19 02:41: Blood Gas Bicarbonate Standard 4.5, Venous Blood pH 6.806L, Venous Blood Partial Pressure CO2 17.8L, Venous Blood Partial Pressure O2 100.9H, Venous Blood Total Carbon Dioxide 3.3L, Venous Blood HCO3 2.7L, Venous Blood Oxygen Saturation 95.5H, Venous Blood Base Excess -30.9L 06/15/19 02:42: Immature Granulocyte % (Auto) 1.5, Neutrophils (%) (Auto) 78.8H, Lymphocytes (%) (Auto) 10.2L, Monocytes (%) (Auto) 8.8H, Eosinophils (%) (Auto) 0.1, Basophils (%) (Auto) 0.6, Neutrophils # (Auto) 18.0H, Lymphocytes # (Auto) 2.3, Monocytes # (Auto) 2.0H, Eosinophils # (Auto) 0.0, Basophils # (Auto) 0.1, Nucleated Red Blood Cells % (auto) 0.0, Anion Gap 35H, Glomerular Filtration Rate 21.4L, Estimated Mean Plasma Glucose 309H, Hemoglobin A1c 12.4, Lactic Acid Level 8.4*H, Calcium Level 9.5, Total Bilirubin 0.6, Direct Bilirubin 0.2, Aspartate Amino Transf (AST/SGOT) 14, Alanine Aminotransferase (ALT/SGPT) 20, Alkaline Phosphatase 145H, Ammonia 82H, Total Creatine Kinase 36, Total Protein 7.3, Albumin 4.1, Albumin/Globulin Ratio 1.28, Thyroid Stimulating Hormone (TSH) 5.610H, Free Thyroxine Index 2.6, Thyroxine (T4) 7.3, Triiodothyronine (T3) Uptake 36, Ethyl Alcohol Level < 0.003, B-Hydroxybutyrate > 46.00H 06/15/19 03:08: Blood Gas Bicarbonate Standard 4.3L, Arterial Blood pH 6.828*L, Arterial Blood Partial Pressure CO2 13.5*L, Arterial Blood Partial Pressure O2 142.3H, Arterial Blood Total CO2 2.6L, Arterial Blood HCO3 2.2L, Arterial Blood Base Excess - 30.8L, Arterial Blood Oxygen Saturation 98.2 06/15/19 04:50: POC Glucose (Misc Panel) > 700*H, POC Sodium (Misc Panel) 133L, POC Potassium (Misc Panel) 4.2, POC Chloride (Misc Panel) 103, POC Total CO2 (Misc Panel) 6.0L, POC Blood Urea Nitrogen (Misc Panel 41H, POC Ionized Calcium (Misc Panel) 4.6, POC Creatinine (Misc Panel) 1.7H, POC Hematocrit (Misc Panel) 35.0L IMAGING: Chest xray "Impression: 1. Right IJ line with tip in the SVC. No pneumothorax. 2. Increased interstitial markings are nonspecific. Differential may include mild early interstitial edema, scattered atelectasis, and prominence due to technique. 3. Cannot exclude subtle right basilar pleural reaction." MICROBIOLOGY: 06/15/19 Blood Culture, Received Pending 06/15/19 Blood Culture, Received Pending ASSESSMENT: is a 63 yr old w a PMH of IDDM, HTN, thymoma, and subarachnoid hemorrhage who is admitted for management of DKA of unclear cause, PLAN: 1. DKA Diagnosis based on presence of gluc >250 + pH <7.30 + bicarbonate <18 + urine ketones + serum osm >320 + AG >12 + BHB Possible causes include: noncompliance, infection, discontinuation of insulin, inadequate insulin dosing, PA, sepsis, or pancreatitis DKA MMP Score = 4 points = 0.86% in hospital mortality Plan: admit to ICU /NPO / Insulin drip per protocol/ f/u UA, lipase, trop, UA w cx, blood cx / f/u accuchecks Q1H, BMP Q4H, venous PH Q4H, osmol Q4H, Mag Q4H, phosp Q4H & A1C / since her pH is < 6.9 and Na is low will start with 0.9% with bicarb and KCl/ hold home anti-glycemic agents pending resolution of DKA 2. Metabolic Encephalopathy 2/2 hyperglycemia and hyperammonemia of unclear cause Plan: neurochecks / treat DKA / lactulose if alert enough to swallow / f/u liver US & Coags to determine if she has liver dz 3. SIRS cause TBD Suspect this is due to an infection SIRS criteria include: HR >90 / WBC >12 / RR > 20 Lactic acid >2 NEWS2 Score = 12 points = high risk Plan: telemetry / Sepsis protocol w repeat lactic / f/u blood cx, UA w Cx / target MAP 65 to 70 / f/u Is and Os with target UOP of at least 0.5 ml/kg/H 4. Acute Renal Failure Likely prerenal Plan: Is/Os, daily weights / IVF / f/u UA, ulytes for FENa or FEUrea / renal US 5. Hypotension Likely due to infection.& diuretic effect of glucose She has hx of HTN Plan: IVF/ hold BP meds DVT Px w lovenox Dispo: home with daughter and after more than 2 midnight's stay LATE ENTRY 6.Pancreatitis The patient had abdominal pain with palpation of the abdomen and her lipase returned and was >3000 ETOH is wnl Plan: IVF/ morphine PRN for pain / f/u liver US which has already been ordered, and add nn lipid panel to determine cause of pancreatitis Home Medications Scheduled Amlodipine Besylate (Amlodipine Besylate) 5 Mg Tablet, 5 MG PO DAILY Cholecalciferol (Vitamin D3) (Vitamin D3) 1,000 Unit Tablet, 1,000 UNITS PO DAILY Insulin Glargine,Hum.rec.anlog (Toujedom Solostmicah) 300 Unit/1 Ml Insuln.pen, 40 UNIT SC DAILY Insulin Lispro (Humalog Kwikpen U-100) 100 Unit/1 Ml Insuln.pen, 1 DOSE SC AC SLIDING SCALE Levothyroxine Sodium (Synthroid) 150 Mcg Tablet, 150 MCG PO DAILY Lisinopril (Lisinopril) 10 Mg Tablet, 10 MG PO DAILY Vits A,C,E/Lutein/Minerals (Ocuvite with Lutein Tablet) 1 Tab Tab, 1 TAB PO DAILY Scheduled PRN Meclizine HCl (Meclizine HCl) 12.5 Mg Tablet, 12.5 MG PO TID PRN for DIZZINESS Allergies Coded Allergies: codeine (Verified Allergy, Unknown, 06/15/19) latex (Verified Allergy, Unknown, 06/15/19) A-FIB/CHADSVASC A-FIB History Current/History of A-Fib/PAF?: No Current PO Anticoag Therapy: No JESUS GUPTA MD June 15, 2019 05:05
--- NOTE | 2019-06-15 05:25 | REP ---
Clinical: Central line placement. Comparison: 02/03/2018. Findings: Right IJ line with tip in the SVC. Mediastinum and cardiac silhouette are stable and grossly normal for portable technique. Evidence for prior sternotomy noted. The lung de leon demonstrate chronic-appearing interstitial changes although subtle scattered atelectasis and small right pleural reaction cannot be excluded. No pneumothorax. Skeletal structures are intact. Evidence for prior left axillary node dissection. Impression: 1. Right IJ line with tip in the SVC. No pneumothorax. 2. Increased interstitial markings are nonspecific. Differential may include mild early interstitial edema, scattered atelectasis, and prominence due to technique. 3. Cannot exclude subtle right basilar pleural reaction. Electronically Signed by Humberto Wright MD 06/15/2019 05:15 A
[2019-06-15 05:41] LABS: CALCIUM LEVEL 8.5 MG/DL (8.8-10.2); CREATININE FOR GFR 2.37 MG/DL (0.55-1.30); GLOMERULAR FILTRATION RATE 21.9 (>45); PHOSPHORUS LEVEL 9.8 MG/DL (2.5-4.9); POTASSIUM SERUM 4.6 MEQ/L (3.5-5.1); TROPONIN I 0.05 NG/ML (< 0.10)
[2019-06-15] MEDS: SODIUM BICARBONATE IV SCH ×2 (06:26→09:57)
[2019-06-15] MEDS: NS IV SCH ×2 (06:26→09:57)
[2019-06-15] MEDS: LACTULOSE 20 GM/30 ML SYRUP UD PO SCH ×3 (06:26→20:44)
[2019-06-15] MEDS: POTASSIUM CHLORIDE IV SCH ×2 (06:26→09:57)
[2019-06-15 07:09] LABS: VENOUS BASE EXCESS -21.9 (-2.0-2.0); VENOUS HCO3 5.5 MEQ/L (23.0-27.0); VENOUS O2 SATURATION 95.3 % (60.0-80.0); VENOUS PARTIAL PRESSURE CO2 17.3 mmHg (38.0-50.0); VENOUS PARTIAL PRESSURE O2 79.1 mmHg (30.0-50.0); VENOUS PH 7.118 UNITS (7.330-7.430); VENOUS STANDARD HCO3 8.5 MEQ/L
[2019-06-15 07:20] LABS: INR 1.19; PROTHROMBIN TIME 14.8 SECONDS (11.8-14.0)
[2019-06-15 07:30] LABS: CHOLESTEROL RISK RATIO 3.322 (<5); POTASSIUM SERUM 3.8 MEQ/L (3.5-5.1); TROPONIN I 0.1 NG/ML (< 0.10)
[2019-06-15] MEDS ORDERED: GLUCAGON INJ 1MG VIAL SC PRN (07:45)
[2019-06-15] MEDS ORDERED: DEXTROSE 50% 50 ML SYRINGE IV PRN (07:45)
[2019-06-15] MEDS ORDERED: GLUCOSE 4GM CHEW TABLET PO PRN (07:45)
[2019-06-15 07:49] LABS: CALCIUM LEVEL 7.6 MG/DL (8.8-10.2); CREATININE FOR GFR 2.21 MG/DL (0.55-1.30); GLOMERULAR FILTRATION RATE 23.7 (>45); PHOSPHORUS LEVEL 4.6 MG/DL (2.5-4.9); POTASSIUM SERUM 3.7 MEQ/L (3.5-5.1)
[2019-06-15] MEDS: INSULIN IV RATE CHANGE DOCUMENTATION ML/HR XX SCH ×6 (08:00→23:23)
--- NOTE | 2019-06-15 08:44 | ECGEPIP ---
[facility] - ED Test Date: 2019-06-15 Pat Name: JOHN MARTIN Department: Room: [place] [address] Gender: Female Frame Table Operator: bridget : 1955 Requested By: DIXON SPRAGUE Order Number: [id number] Reading MD: Demetrius Amaral Measurements Intervals [place] Rate: 120 P: 88 SC: 180 QRS: 16 QRSD: 100 T: -5 QT: 329 QTc: 465 Interpretive Statements SINUS TACHYCARDIA MODERATE INTRAVENTRICULAR CONDUCTION DELAY Electronically Signed on 06-15-2019 8:43:35 EDT by Demetrius Amaral
[2019-06-15] MEDS ORDERED: ENOXAPARIN 30MG/0.3ML SYRINGE (J1650 PER 10MG) SC SCH (09:00)
[2019-06-15] MEDS ORDERED: NS IV SCH ×2 (10:00)
[2019-06-15] MEDS ORDERED: KCL IV SCH ×2 (10:00)
[2019-06-15] MEDS ORDERED: SODIUM BICARBONATE IV SCH ×3 (10:00→14:00)
[2019-06-15 10:54] LABS: VENOUS BASE EXCESS -14.2 (-2.0-2.0); VENOUS HCO3 10.3 MEQ/L (23.0-27.0); VENOUS O2 SATURATION 98.4 % (60.0-80.0); VENOUS PARTIAL PRESSURE CO2 21.2 mmHg (38.0-50.0); VENOUS PARTIAL PRESSURE O2 125.4 mmHg (30.0-50.0); VENOUS PH 7.304 UNITS (7.330-7.430); VENOUS STANDARD HCO3 13.5 MEQ/L; VENOUS TOTAL CO2 10.9 MEQ/L (24.0-28.0)
--- NOTE | 2019-06-15 10:56 | REP ---
ULTRASOUND ABDOMEN: Real-time sonographic evaluation of the abdomen performed. Gallbladder demonstrates no evidence of intraluminal sludge or calculi, wall thickening or pericholecystic fluid. There is no intrahepatic or extrahepatic biliary dilatation, common bile duct measuring 4 mm. Liver and pancreas demonstrate no gross mass. Evaluation is somewhat limited due to body habitus and bowel gas. Spleen is normal in size with no intrinsic abnormality measuring 9.7 cm in length. The kidneys are normal in size and echotexture, right kidney measuring 11.1 x 5.5 x 4.7 cm and left kidney 12.5 x 5.1 x 6.0 cm. There is no hydronephrosis bilaterally. There is a cyst of the mid left kidney 4.3 x 2.6 x 3.2 cm. Visualized abdominal aorta is normal in caliber with no aneurysm, proximally measuring 2.0 cm in maximum AP dimension and distally 1.6 cm. Mid aspect could not be seen due to overlying bowel gas. No free fluid is seen. IMPRESSION: No hydronephrosis. Left renal cyst. No other gross abnormalities. Electronically Signed by Jarvis Augustin MD 06/15/2019 11:29 A
[2019-06-15 11:23] LABS: CALCIUM LEVEL 7.5 MG/DL (8.8-10.2); CK-MB VALUE MASS 5.6 NG/ML (<3.6); CREATININE FOR GFR 2.15 MG/DL (0.55-1.30); GLOMERULAR FILTRATION RATE 24.5 (>45); MAGNESIUM LEVEL 1.8 MG/DL (1.8-2.4); MB/CK RELATIVE INDEX 5.66 (< OR =4); PHOSPHORUS LEVEL 1.6 MG/DL (2.5-4.9); POTASSIUM SERUM 3.4 MEQ/L (3.5-5.1); TROPONIN I 0.47 NG/ML (< 0.10)
[2019-06-15] MEDS: INSULIN HUMAN REGULAR 100 UNITS in NS 99 ML IV SCH ×2 (11:38→23:23)
[2019-06-15] MEDS ORDERED: KCL 20MEQ IN 100ML SWI (KRUN) 20 MEQ in IV 1 EA IV ONE ×2 (12:00)
[2019-06-15] MEDS ORDERED: ACETAMINOPHEN TAB 650MG DOSE (2X325MG) PO PRN (12:15)
[2019-06-15] MEDS ORDERED: POTASSIUM CHLORIDE IV SCH (14:00)
[2019-06-15] MEDS ORDERED: NS 0.45% IV SCH (14:00)
[2019-06-15 15:17] LABS: VENOUS BASE EXCESS -2.6 (-2.0-2.0); VENOUS HCO3 20.8 MEQ/L (23.0-27.0); VENOUS O2 SATURATION 98.5 % (60.0-80.0); VENOUS PARTIAL PRESSURE CO2 31.4 mmHg (38.0-50.0); VENOUS STANDARD HCO3 22.3 MEQ/L; VENOUS TOTAL CO2 21.8 MEQ/L (24.0-28.0)
[2019-06-15 16:15] LABS: CALCIUM LEVEL 7.9 MG/DL (8.8-10.2); CK-MB VALUE MASS 7.3 NG/ML (<3.6); CREATININE FOR GFR 1.99 MG/DL (0.55-1.30); GLOMERULAR FILTRATION RATE 26.8 (>45); MAGNESIUM LEVEL 1.8 MG/DL (1.8-2.4); MB/CK RELATIVE INDEX 6.19 (< OR =4); PHOSPHORUS LEVEL 1.3 MG/DL (2.5-4.9); POTASSIUM SERUM 3.5 MEQ/L (3.5-5.1); TROPONIN I 1.11 NG/ML (< 0.10)
[2019-06-15] MEDS ORDERED: LEVEMIR (INSULIN DETEMIR) 1 UNITS/0.01ML SC ONE (18:30)
--- NOTE | 2019-06-15 18:48 | IPNPDOC ---
Date Seen The patient was seen on 06/15/19. Progress Note SUBJECTIVE: Patient clinically doing well, denies any pain, continue monitoring in the ICU, insulin GTT. OBJECTIVE PHYSICAL EXAMINATION: VITAL SIGNS: Please see below. GENERAL: No distress HEENT: Normocephalic, atraumatic, moist mucous membranes NECK: Supple CARDIOVASCULAR EXAMINATION: S1, S2 RESPIRATORY EXAMINATION: CTAB ABDOMINAL EXAMINATION: Soft, tender to palpation in epigastric region, positive bowel sounds EXTREMITIES: trace edema SKIN: No rash NEUROLOGICAL EXAMINATION: awake PSYCHIATRIC EXAMINATION: flat affect LABORATORY DATA, IMAGING STUDIES, MICROBIOLOGY: Please see below. Assessment and plan: Pt is a 63 yoF with PMH of IDDM, HTN, thymoma, and subarachnoid hemorrhage p/w DKA of unclear etiology with pancreatitis. PLAN: #DKA will consider possible etiologies including: noncompliance, infection/sepsis, pancreatitis, UT DKA MMP Score = 4 points = 0.86% in hospital mortality -ICU /NPO / Insulin drip per protocol -f/u UA, blood cx -Change IV fluids accordingly, if potassium 4.5-4.8, use 10 mEq potassium to IVF, if 4-4.4, used 20 meQ potassium to IVF, if 3.5-3.9, use 30mEQ potassium to IVF, if less than 3.5, continue 30mEq to IVF and bolus, 20mEQ K-run, rate 125cc/hr -IV phosphorus added, will recheck in the a.m. -Mg stable, will recheck in AM -Continue every glucose checks, when gap is closed and glucose less than 200, change fluids per protocol and consider starting home insulin, patient takes 40 units of long-acting insulin, consider starting at 30 units -ETOH is wnl, cont morphine PRN for pancreatic pain, lipid panel grossly wnl, slight elevation in total cholesterol #Metabolic Encephalopathy likely secondary to DKA and hyperammonemia -continue neurochecks, lactulose if alert enough to swallow -Abdominal ultrasound is negative for acute findings of the gallbladder, liver, or pancreas. There is a left renal cyst but no hydronephrosis. #SIRS suspect is secondary to infection SIRS criteria include: HR >90 / WBC >12 / RR > 20 Lactic acid >2 NEWS2 Score = 12 points = high risk -Continue Sepsis protocol:COVID screen negative, UA, not suggestive of UTI, blood cultures obtained on 06/15/2019 pending, lactic acid down trending #4. Acute Renal Failure, Likely prerenal in the presence of a left renal cyst, improving -f/u FENa or FEUrea -f/u Is and Os with target UOP of at least 0.5 ml/kg/H #Hypotension in the presence of history of HTN, suspected infection & diuretic effect of glucose -continue IVF/ hold BP meds DVT Px w lovenox Dispo: home with daughter and after more than 2 midnight's stay, antic ipated earliest dc 06/18/19 VS, I&O, 24H, Fishbone Vital Signs/I&O Vital Signs Date Time Temp Pulse Resp B/P (MAP) Pulse Ox O2 Delivery O2 Flow Rate FiO2 06/15/19 17:00 103 24 101/56 (71) 98 Room Air 06/15/19 16:00 99.8 I&O- Last 24 Hours up to 6 AM 06/15/19 06:00 Intake Total 4006.3 ml Balance 4006.3 ml Laboratory Data 24H LABS Laboratory Tests 2 06/15/19 02:14: Bedside Glucose (Misc Panel) > 600*H 06/15/19 02:41: Blood Gas Bicarbonate Standard 4.5, Venous Blood pH 6.806L, Venous Blood Partial Pressure CO2 17.8L, Venous Blood Partial Pressure O2 100.9H, Venous Blood Total Carbon Dioxide 3.3L, Venous Blood HCO3 2.7L, Venous Blood Oxygen Saturation 95.5H, Venous Blood Base Excess -30.9L 06/15/19 02:42: Immature Granulocyte % (Auto) 1.5, Neutrophils (%) (Auto) 78.8H, Lymphocytes (%) (Auto) 10.2L, Monocytes (%) (Auto) 8.8H, Eosinophils (%) (Auto) 0.1, Basophils (%) (Auto) 0.6, Neutrophils # (Auto) 18.0H, Lymphocytes # (Auto) 2.3, Monocytes # (Auto) 2.0H, Eosinophils # (Auto) 0.0, Basophils # (Auto) 0.1, Nucleated Red Blood Cells % (auto) 0.0, Anion Gap 35H, Glomerular Filtration Rate 21.4L, Estimated Mean Plasma Glucose 309H, Hemoglobin A1c 12.4, Lactic Acid Level 8.4*H, Calcium Level 9.5, Total Bilirubin 0.6, Direct Bilirubin 0.2, Aspartate Amino Transf (AST/SGOT) 14, Alanine Aminotransferase (ALT/SGPT) 20, Alkaline Phosphatase 145H, Ammonia 82H, Total Creatine Kinase 36, Total Protein 7.3, Albumin 4.1, Albumin/Globulin Ratio 1.28, Procalcitonin 1.26, Thyroid Stimulating Hormone (TSH) 5.610H, Free Thyroxine Index 2.6, Thyroxine (T4) 7.3, Triiodothyronine (T3) Uptake 36, Ethyl Alcohol Level < 0.003, B-Hydroxybutyrate > 46.00H 06/15/19 03:08: Blood Gas Bicarbonate Standard 4.3L, Arterial Blood pH 6.828*L, Arterial Blood Partial Pressure CO2 13.5*L, Arterial Blood Partial Pressure O2 142.3H, Arterial Blood Total CO2 2.6L, Arterial Blood HCO3 2.2L, Arterial Blood Base Excess - 30.8L, Arterial Blood Oxygen Saturation 98.2 06/15/19 03:43: Bedside Glucose (Misc Panel) > 600*H 06/15/19 04:13: Bedside Glucose (Misc Panel) > 600*H 06/15/19 04:19: Coronavirus (COVID-19)(PCR) NEGATIVE 06/15/19 04:20: Anion Gap 32H, Glomerular Filtration Rate 21.9L, Osmolality 358H, Calcium Level 8.5L, Phosphorus Level 9.8H, Troponin I 0.05, Lipase 3826H 06/15/19 04:25: Lab Scanned Report LAB OTHER 06/15/19 04:39: Urine Color YELLOW, Urine Appearance CLOUDYH, Urine pH 5.0, Urine Specific [place] 1.015, Urine Protein 1+H, Urine Glucose (UA) 3+H, Urine Ketones 2+H, Urine Blood 1+H, Urine Nitrite NEGATIVE, Urine Bilirubin NEGATIVE, Urine Urobilinogen 0.2, Urine Leukocyte Esterase NEGATIVE, Urine WBC (Auto) 1, Urine RBC (Auto) 0, Urine Hyaline Casts (Auto) 1, Urine Bacteria (Auto) NEGATIVE, Urine Squamous Epithelial Cells 0, Urine Transitional Epithelial Cells <1, Urine Amorphous Sediment SMALLH, Urine Mucus (Auto) SMALL, Urine Sperm (Auto) 06/15/19 04:50: POC Glucose (Misc Panel) > 700*H, POC Sodium (Misc Panel) 133L, POC Potassium (Misc Panel) 4.2, POC Chloride (Misc Panel) 103, POC Total CO2 (Misc Panel) 6.0L, POC Blood Urea Nitrogen (Misc Panel 41H, POC Ionized Calcium (Misc Panel) 4.6, POC Creatinine (Misc Panel) 1.7H, POC Hematocrit (Misc Panel) 35.0L 06/15/19 04:55: Blood Gas Bicarbonate Standard 5.3, Venous Blood pH 6.917L, Venous Blood Partial Pressure CO2 16.2L, Venous Blood Partial Pressure O2 103.6H, Venous Blood Total Carbon Dioxide 3.7L, Venous Blood HCO3 3.2L, Venous Blood Oxygen Saturation 96.7H, Venous Blood Base Excess -27.9L 06/15/19 05:35: Bedside Glucose (Misc Panel) > 600*H 06/15/19 06:30: Prothrombin Time 14.8H, Prothromb Time International Ratio 1.19, Troponin I 0.10#, Triglycerides Level 164H, Total Cholesterol 196, LDL Cholesterol 104H, Non-HDL Cholesterol (LDL + VLDL) 137, Total HDL Cholesterol 59, Cholesterol/HDL Ratio 3.322 06/15/19 07:01: Blood Gas Bicarbonate Standard 8.5, Venous Blood pH 7.118L, Venous Blood Partial Pressure CO2 17.3L, Venous Blood Partial Pressure O2 79.1H, Venous Blood Total C arbon Dioxide 6.0L, Venous Blood HCO3 5.5L, Venous Blood Oxygen Saturation 95.3H, Venous Blood Base Excess -21.9L, Anion Gap 25H, Glomerular Filtration Rate 23.7L, Osmolality 346H, Lactic Acid Followup at 4 Hours 5.3*H, Calcium Level 7.6L, Phosphorus Level 4.6# 06/15/19 08:12: Bedside Glucose Confirm (Misc) 649*H 06/15/19 09:03: Bedside Glucose Confirm (Misc) 612*H 06/15/19 09:55: Bedside Glucose Confirm (Misc) 589*H 06/15/19 10:41: Blood Gas Bicarbonate Standard 13.5, Venous Blood pH 7.304L, Venous Blood Partial Pressure CO2 21.2L, Venous Blood Partial Pressure O2 125.4H, Venous Blood Total Carbon Dioxide 10.9L, Venous Blood HCO3 10.3L, Venous Blood Oxygen Saturation 98.4H, Venous Blood Base Excess -14.2L 06/15/19 10:42: Anion Gap 19H, Glomerular Filtration Rate 24.5L, Calcium Level 7.5L, Phosphorus Level 1.6#L, Magnesium Level 1.8, Total Creatine Kinase 99#, Creatine Kinase MB 5.6H, Creatine Kinase MB Relative Index 5.66H, Troponin I 0.47#H 06/15/19 11:15: Osmolality 338H 06/15/19 11:55: Bedside Glucose Confirm (Misc) 501*H 06/15/19 13:02: Bedside Glucose (Misc Panel) 426H 06/15/19 14:02: Bedside Glucose (Misc Panel) 397H 06/15/19 15:01: Blood Gas Puncture Site UNKNOWN, Blood Gas Bicarbonate Standard 22.3, Venous Blood pH 7.440H, Venous Blood Partial Pressure CO2 31.4L, Venous Blood Partial Pressure O2 126.0H, Venous Blood Total Carbon Dioxide 21.8L, Venous Blood HCO3 20.8L, Venous Blood Oxygen Saturation 98.5H, Venous Blood Base Excess -2.6L, Anion Gap 10, Glomerular Filtration Rate 26.8L, Osmolality 334H, Calcium Level 7.9L, Phosphorus Level 1.3L, Magnesium Level 1.8, Total Creatine Kinase 118, Creatine Kinase MB 7.3H, Creatine Kinase MB Relative Index 6.19H, Troponin I 1.11#H 06/15/19 15:03: Bedside Glucose (Misc Panel) 374H 06/15/19 15:55: Bedside Glucose (Misc Panel) 338H 06/15/19 17:09: Bedside Glucose (Misc Panel) 296H 06/15/19 17:55: Bedside Glucose (Misc Panel) 270H CBC/BMP Laboratory Tests 06/15/19 02:42 06/15/19 04:20 06/15/19 06:30 06/15/19 07:01 06/15/19 10:42 06/15/19 15:01 Microbiology Microbiology 06/15/19 Blood Culture, Received Pending 06/15/19 Blood Culture, Received Pending ERICK ROSSI MD June 15, 2019 18:48
[2019-06-15 19:00] LABS: VENOUS O2 SATURATION 96.6 % (60.0-80.0); VENOUS PARTIAL PRESSURE CO2 36.7 mmHg (38.0-50.0); VENOUS PARTIAL PRESSURE O2 85.4 mmHg (30.0-50.0); VENOUS PH 7.433 UNITS (7.330-7.430); VENOUS STANDARD HCO3 24.4 MEQ/L; VENOUS TOTAL CO2 25.1 MEQ/L (24.0-28.0)
[2019-06-15 19:26] LABS: CREATININE FOR GFR 1.99 MG/DL (0.55-1.30); GLOMERULAR FILTRATION RATE 26.8 (>45); POTASSIUM SERUM 3.3 MEQ/L (3.5-5.1)
[2019-06-15] MEDS ORDERED: POTASSIUM CHLORIDE INJ 30 MEQ in NS 0.45% 1,000 ML IV SCH (20:00)
[2019-06-15] MEDS ORDERED: POTASSIUM PHOSPHATE IV ONE ×2 (20:00→21:45)
[2019-06-15] MEDS ORDERED: NS 0.45% IV ONE (20:00)
[2019-06-15] MEDS ORDERED: SODIUM CHLORIDE IV ONE (21:45)
[2019-06-15] MEDS ORDERED: D5W IV ONE (21:45)
[2019-06-16] VITALS (10 sets, daily range): BP systolic 104–136; BP diastolic 57–76
[2019-06-16 00:09] LABS: CALCIUM LEVEL 7.9 MG/DL (8.8-10.2); CREATININE FOR GFR 1.7 MG/DL (0.55-1.30); GLOMERULAR FILTRATION RATE 32.1 (>45); POTASSIUM SERUM 3.7 MEQ/L (3.5-5.1)
[2019-06-16] MEDS: INSULIN IV RATE CHANGE DOCUMENTATION ML/HR XX SCH ×2 (00:12→05:57)
[2019-06-16] MEDS: D5W/0.45% SODIUM CHLORIDE 1,000 ML IV SCH ×2 (02:45→07:18)
[2019-06-16 03:28] LABS: VENOUS O2 SATURATION 98.7 % (60.0-80.0); VENOUS PARTIAL PRESSURE CO2 35.8 mmHg (38.0-50.0); VENOUS PARTIAL PRESSURE O2 137.9 mmHg (30.0-50.0); VENOUS PH 7.426 UNITS (7.330-7.430); VENOUS STANDARD HCO3 23.7 MEQ/L; VENOUS TOTAL CO2 24.1 MEQ/L (24.0-28.0)
[2019-06-16 04:13] LABS: CK-MB VALUE MASS 5.7 NG/ML (<3.6); CREATININE FOR GFR 1.61 MG/DL (0.55-1.30); GLOMERULAR FILTRATION RATE 34.2 (>45); MB/CK RELATIVE INDEX 4.29 (< OR =4); POTASSIUM SERUM 3.4 MEQ/L (3.5-5.1); TROPONIN I 1.95 NG/ML (< 0.10)
[2019-06-16] MEDS ORDERED: LEVEMIR (INSULIN DETEMIR) 1 UNITS/0.01ML As Ordered ONE (05:32)
[2019-06-16] MEDS ORDERED: ENOXAPARIN 60MG/0.6ML SYRINGE (J1650 PER 10MG) SC SCH (06:00)
[2019-06-16] MEDS ORDERED: KCL 20MEQ IN 100ML SWI (KRUN) 20 MEQ in IV 1 EA IV ONE ×2 (06:15)
[2019-06-16] MEDS ORDERED: CLOPIDOGREL 300 MG TAB (PLAVIX) PO STA (06:22)
[2019-06-16] MEDS ORDERED: ASPIRIN 81 MG CHEW TABLET PO ONE (06:30)
[2019-06-16] MEDS ORDERED: ATORVASTATIN 20 MG TAB PO SCH (06:30)
[2019-06-16] MEDS ORDERED: KCL 10MEQ/100ML SWI (KRUN) 10 MEQ in IV 1 EA IV ONE (07:00)
--- NOTE | 2019-06-16 07:22 | DS.PDOC ---
Discharge Summary General Date of Admission June 15, 2019 at 04:25 Date of Discharge 06/16/2019 Time of service 7:15 AM Primary Care Physician: Christian Ware Attending Physician: ERICK ROSSI MD Discharge Summary PROCEDURES PERFORMED DURING STAY: right IJ ADMITTING DIAGNOSES: 1.DKA 2. Metabolic Encephalopathy 3. SIRS 4. Acute Renal Failure 5. Hypotension 6. Pancreatitis DISCHARGE DIAGNOSES: 1. DKA -resolving 2. Acute Renal Failure - resolving 3. Type 1 vs Type 2 NSTEMI 4. SIRS possibly reactive - resolving 5. Hypotension - resolved 6. Metabolic Encephalopathy -resolved COMPLICATIONS/CHIEF COMPLAINT: Sepsis, Dka Type 2, Coco. HISTORY OF PRESENT ILLNESS: Per HPI "This is a 63 yr old F who was brought to the ER by her daughter because she was noted to be walking around the house confused and opening drawers. Prior to that she spend the majority of the day sleeping and had been vomiting. During my assessment the patient was lethargic but denied having any chest pain, shortness of breath or joint pain. Her main c/o was of thirst. She was not able to give specifics about what happened prior to her arrival in the hospital. " HOSPITAL COURSE: She was admitted to the ICU for management of DKA, encepalopathy, pancreatitis, hypotension and COCO. The hypotension resolved with fluids shortly after arrival in the ICU. The DKA and encephalopathy resolved with insulin and IVF by the afternoon of June 14 but we were unable to complete bridging because the patient was unable to eat. On the morning of it was noted that her Trop increased from 1.11 (at 3PM on June 14 ) to 1.95, her EKG showed flattening of the ST segment in compared to her previous EKGs. Per d/w our Cardilogist we initiated transfer to [facility]. Under the care of Dr. Raines and Dr. Alvarez. This morning she denies having chest pain or dyspnea and her abdominal pain is less severe. She woudl like to eat breakfast and will receive 40 units of long acting insulin for bridging prior to transfer. Currently her COCO has improved, but not completely resolved. We were unable to find a source of infection to explian the SIRs therefore it may be reactive. DISCHARGE MEDICATIONS: Please see below. ALLERGIES: Please see below. PHYSICAL EXAMINATION ON DISCHARGE: VITAL SIGNS: Please see below. GENERAL: NAD HEENT: NCAT / MMM&P NECK: IJ in place CARDIOVASCULAR EXAMINATION: RRR / NMRG RESPIRATORY EXAMINATION: RRR/ NMRG ABDOMINAL EXAMINATION: distended /soft & NT NEUROLOGICAL EXAMINATION: CN 2-12 grossly intact /speech not dysarthic PSYCHIATRIC EXAMINATION: A&Ox3 LABORATORY DATA: Please see below. IMAGING: Chest xray "Impression: 1. Right IJ line with tip in the SVC. No pneumothorax. 2. Increased interstitial markings are nonspecific. Differential may include mild early interstitial edema, scattered atelectasis, and prominence due to technique. 3. Cannot exclude subtle right basilar pleural reaction." US of abdomen "IMPRESSION: No hydronephrosis. Left renal cyst. No other gross abnormalities." PROGNOSIS: guaurded ACTIVITY: [As tolerated]. DIET: carbohydrate consistent DISCHARGE PLAN: transfer to [facility] DISPOSITION: . DISCHARGE INSTRUCTIONS: 1. will be transferred to ICU ITEMS TO FOLLOWUP ON ON OUTPATIENT: 1. possible NSTEMI 2. DM/DKA 3. COCO 4. Work up for SIRS (blood cx, chest xray, UA were negative here) DISCHARGE CONDITION: [Stable]. TIME SPENT ON DISCHARGE: about 55 MIN were spent calling specialist and coordinating transfer Vital Signs/I&Os Vital Signs Date Time Temp Pulse Resp B/P (MAP) Pulse Ox O2 Delivery O2 Flow Rate FiO2 06/16/19 06:00 94 22 135/64 (87) 97 Room Air 06/16/19 04:00 98.3 I&O- Last 24 Hours up to 6 AM 06/16/19 06:00 Intake Total 4204 ml Output Total 1405 ml Balance 2799 ml Laboratory Data Labs 24H Laboratory Tests 2 06/15/19 08:12: Bedside Glucose Confirm (Misc) 649*H 06/15/19 09:03: Bedside Glucose Confirm (Misc) 612*H 06/15/19 09:55: Bedside Glucose Confirm (Misc) 589*H 06/15/19 10:41: Blood Gas Bicarbonate Standard 13.5, Venous Blood pH 7.304L, Venous Blood Partial Pressure CO2 21.2L, Venous Blood Partial Pressure O2 125.4H, Venous Blood Total Carbon Dioxide 10.9L, Venous Blood HCO3 10.3L, Venous Blood Oxygen Saturation 98.4H, Venous Blood Base Excess -14.2L 06/15/19 10:42: Anion Gap 19H, Glomerular Filtration Rate 24.5L, Calcium Level 7.5L, Phosphorus Level 1.6#L, Magnesium Level 1.8, Total Creatine Kinase 99#, Creatine Kinase MB 5.6H, Creatine Kinase MB Relative Index 5.66H, Troponin I 0.47#H 06/15/19 11:15: Osmolality 338H 06/15/19 11:55: Bedside Glucose Confirm (Misc) 501*H 06/15/19 13:02: Bedside Glucose (Misc Panel) 426H 06/15/19 14:02: Bedside Glucose (Misc Panel) 397H 06/15/19 15:01: Blood Gas Puncture Site UNKNOWN, Blood Gas Bicarbonate Standard 22.3, Venous Blood pH 7.440H, Venous Blood Partial Pressure CO2 31.4L, Venous Blood Partial Pressure O2 126.0H, Venous Blood Total Carbon Dioxide 21.8L, Venous Blood HCO3 20.8L, Venous Blood Oxygen Saturation 98.5H, Venous Blood Base Excess -2.6L, Anion Gap 10, Glomerular Filtration Rate 26.8L, Osmolality 334H, Calcium Level 7.9L, Phosphorus Level 1.3L, Magnesium Level 1.8, Total Creatine Kinase 118, Creatine Kinase MB 7.3H, Creatine Kinase MB Relative Index 6.19H, Troponin I 1.11#H 06/15/19 15:03: Bedside Glucose (Misc Panel) 374H 06/15/19 15:55: Bedside Glucose (Misc Panel) 338H 06/15/19 17:09: Bedside Glucose (Misc Panel) 296H 06/15/19 17:55: Bedside Glucose (Misc Panel) 270H 06/15/19 18:43: Activated Partial Thromboplast Time 30.8, Blood Gas Bicarbonate Standard 24.4, Venous Blood pH 7.433H, Venous Blood Partial Pressure CO2 36.7L, Venous Blood Partial Pressure O2 85.4H, Venous Blood Total Carbon Dioxide 25.1, Venous Blood HCO3 24.0, Venous Blood Oxygen Saturation 96.6H, Venous Blood Base Excess 0.0, Anion Gap 6L, Glomerular Filtration Rate 26.8L, Osmolality 328H, Calcium Level 8.0L, Ammonia 15 06/15/19 18:45: Bedside Glucose (Misc Panel) 179H 06/15/19 18:48: Bedside Glucose (Misc Panel) 207H 06/15/19 20:38: Bedside Glucose (Misc Panel) 149H 06/15/19 21:15: Bedside Glucose (Misc Panel) 126H 06/15/19 22:00: Bedside Glucose (Misc Panel) 126H 06/15/19 23:19: Bedside Glucose (Misc Panel) 181H 06/15/19 23:30: Anion Gap 10, Glomerular Filtration Rate 32.1L, Osmolality 327H, Calcium Level 7.9L 06/16/19 00:10: Bedside Glucose (Misc Panel) 177H 06/16/19 01:04: Bedside Glucose (Misc Panel) 188H 06/16/19 02:13: Bedside Glucose (Misc Panel) 183H 06/16/19 03:15: Blood Gas Bicarbonate Standard 23.7, Venous Blood pH 7.426, Venous Blood Partial Pressure CO2 35.8L, Venous Blood Partial Pressure O2 137.9H, Venous Blood Total Carbon Dioxide 24.1, Venous Blood HCO3 23.0, Venous Blood Oxygen Saturation 98.7H, Venous Blood Base Excess -1.0, Anion Gap 7L, Glomerular Filtration Rate 34.2L, Calcium Level 8.0L, Total Creatine Kinase 133, Creatine Kinase MB 5.7H, Creatine Kinase MB Relative Index 4.29H, Troponin I 1.95#*H 06/16/19 03:18: Bedside Glucose (Misc Panel) 173H 06/16/19 04:05: Bedside Glucose (Misc Panel) 170H 06/16/19 05:54: Bedside Glucose (Misc Panel) 159H 06/16/19 06:52: Bedside Glucose (Misc Panel) 161H 06/16/19 07:06: CBC/BMP Laboratory Tests 06/15/19 10:42 06/15/19 15:01 06/15/19 18:43 06/15/19 23:30 06/16/19 03:15 FSBS Laboratory Tests Test 06/15/19 13:02 06/15/19 14:02 06/15/19 15:03 06/15/19 15:55 Range/Units Bedside Glucose (Misc Panel) 426 397 374 338 80-115 MG/DL Test 06/15/19 17:09 06/15/19 17:55 06/15/19 18:45 06/15/19 18:48 Range/Units Bedside Glucose (Misc Panel) 296 270 179 207 80-115 MG/DL Test 06/15/19 20:38 06/15/19 21:15 06/15/19 22:00 06/15/19 23:19 Range/Units Bedside Glucose (Misc Panel) 149 126 126 181 80-115 MG/DL Test 06/16/19 00:10 06/16/19 01:04 06/16/19 02:13 06/16/19 03:18 Range/Units Bedside Glucose (Misc Panel) 177 188 183 173 80-115 MG/DL Test 06/16/19 04:05 06/16/19 05:54 06/16/19 06:52 Range/Units Bedside Glucose (Misc Panel) 170 159 161 80-115 MG/DL Microbiology Microbiology 06/15/19 Blood Culture - Preliminary, Resulted No growth after 24 hours . All specim... 06/15/19 Blood Culture - Preliminary, Resulted No growth after 24 hours . All specim... Discharge Medications Scheduled Amlodipine Besylate (Amlodipine Besylate) 5 Mg Tablet, 5 MG PO DAILY, (Reported) Cholecalciferol (Vitamin D3) (Vitamin D3) 1,000 Unit Tablet, 1,000 UNITS PO DAILY, (Reported) Insulin Glargine,Hum.rec.anlog (Toujeo Solostar) 300 Unit/1 Ml Insuln.pen, 40 UNIT SC DAILY, (Reported) Insulin Lispro (Humalog Kwikpen U-100) 100 Unit/1 Ml Insuln.pen, 1 DOSE SC AC, (Reported) SLIDING SCALE Levothyroxine Sodium (Synthroid) 150 Mcg Tablet, 150 MCG PO DAILY, (Reported) Lisinopril (Lisinopril) 10 Mg Tablet, 10 MG PO DAILY, (Reported) Vits A,C,E/Lutein/Minerals (Ocuvite with Lutein Tablet) 1 Tab Tab, 1 TAB PO DAILY, (Reported) Scheduled PRN Meclizine HCl (Meclizine HCl) 12.5 Mg Tablet, 12.5 MG PO TID PRN for DIZZINESS, (Reported) Allergies Coded Allergies: codeine (Verified Allergy, Unknown, 06/15/19) latex (Verified Allergy, Unknown, 06/15/19) JESUS GUPTA MD June 16, 2019 07:21
[2019-06-16 07:30] LABS: HEMATOCRIT 28.7 % (36.0-47.0); MEAN CORPUSCULAR HEMOGLOBIN 30.3 pg (27.0-33.0); MEAN CORPUSCULAR HGB CONC 34.8 g/dl (32.0-36.5); PLATELET COUNT, AUTOMATED 211 10^3/uL (150-450); WHITE BLOOD COUNT 12.4 10^3/uL (4.0-10.0)
[2019-06-16] MEDS ORDERED: HumaLOG INSULIN (NovoLOG) PER UNIT SC SCH ×2 (07:30→21:00)
[2019-06-16 07:58] LABS: CK-MB VALUE MASS 4.7 NG/ML (<3.6); CREATININE FOR GFR 1.38 MG/DL (0.55-1.30); GLOMERULAR FILTRATION RATE 40.8 (>45); MB/CK RELATIVE INDEX 3.56 (< OR =4); PHOSPHORUS LEVEL 3.2 MG/DL (2.5-4.9); TROPONIN I 1.64 NG/ML (< 0.10)
[2019-06-16] MEDS ORDERED: KCL 40MEQ in NS 1000ML 1,000 ML IV SCH (08:00)
[2019-06-16] MEDS ORDERED: LEVEMIR (INSULIN DETEMIR) 1 UNITS/0.01ML SC SCH (09:00)
[2019-06-16 09:13] LABS: HEMOGLOBIN A1c 12.6 %
--- NOTE | 2019-06-17 09:41 | ECGEPIP ---
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 Order Number: [id number] Reading MD: Dimitri Rasmussen Measurements Intervals [place] Rate: 96 P: 22 NE: 141 QRS: -10 QRSD: 94 T: 0 QT: 323 QTc: 409 Interpretive Statements SINUS RHYTHM NONSPECIFIC T-WAVE ABNORMALITY Electronically Signed on 06-17-2019 9:40:48 EDT by Dimitri Rasmussen
== END 2019-06-16 09:50 | disposition short-term general hospital (02) | DRG 637 ==
LOC: M ED 02:06 → M ED INP 04:25 → ENRESERV 05:24 → M ICU 06:01
PROVIDERS: ADMIT Internal Medicine; ATTEND Internal Medicine
PROC: 02HV33Z Insertion of Infusion Device into Superior Vena Cava, Percutaneous Approach (ICD-10-PCS; principal; 2019-06-15)
DX: E11.10 Type 2 diabetes mellitus with ketoacidosis without coma (principal); G93.41 Metabolic encephalopathy; I21.A1 Myocardial infarction type 2; N17.9 Acute kidney failure, unspecified; R65.10 Systemic inflammatory response syndrome (SIRS) of non-infectious origin without acute organ dysfunction; E72.20 Disorder of urea cycle metabolism, unspecified; N28.1 Cyst of kidney, acquired; I10 Essential (primary) hypertension; Z87.891 Personal history of nicotine dependence; Z79.4 Long term (current) use of insulin; Z88.5 Allergy status to narcotic agent; Z91.040 Latex allergy status; Z79.899 Other long term (current) drug therapy

== ENCOUNTER → 2019-11-01 | Outpatient (REF) | payer MEDICARE, OTHER ==
[~2019-11-01] MED LIST changes: +AMLO1TAB24 PO; -AMLO5TAB6 PO; +CYAN500T10 PO; -CYAN500T9 PO; +D31000TA2 PO; +HUMA100I5 SC; +LISI10TA4 PO; +MECL12.589 PO; +SYNT150T PO; +TOUJ1.2I SC
[2019-11-02 14:58] LABS: MALB URINE SIEMENS 21.5 MG/L; MAU/CREAT RATIO 43.8 MCG/MG (0.0-30.0)
== END ==
LOC: M LAB REF 13:10
PROVIDERS: ATTEND Nurse Practitioner Family
DX: E10.65 Type 1 diabetes mellitus with hyperglycemia (principal)

== ENCOUNTER 2020-10-16 15:50 | Emergency (ER) | payer MEDICARE, OTHER ==
[~2020-10-16] VITALS: Ht 165.1 cm; Wt 80.1 kg
[~2020-10-16 15:50] MED LIST changes: -CYAN500T10 PO; +LISI10TA22 PO; -LISI10TA4 PO; +MECL-136 PO; -MECL12.589 PO; +VITA500T37 PO
[2020-10-16] MEDS ORDERED: MAGN400T3 (16:03)
[2020-10-16] MEDS ORDERED: CARV3.12 (16:03)
[2020-10-16] MEDS ORDERED: LOSA25TA14 (16:03)
[2020-10-16] MEDS ORDERED: EPINEPHrine INJ 1 MG/ML 1ML AMP IM PRN (17:30)
[2020-10-16] MEDS ORDERED: NS 1,000 ML IV SCH (17:30)
[2020-10-16] MEDS ORDERED: diphenhydrAMINE 50MG/ML VIAL (J1200) IV PRN (17:30)
[2020-10-16] MEDS ORDERED: methylPREDNISolone 125MG 2ML VIAL IV PRN (17:30)
[2020-10-16] MEDS ORDERED: CASIRIVIMAB/IMDEVIMAB 1,200 MG in NS 250 ML IV ONE (17:30)
[2020-10-16] MEDS ORDERED: ALBUTEROL SULFATE 2.5 MG/0.5 ML INH NEB SOLN INH PRN (17:30)
[2020-10-16] MEDS ORDERED: ALBUTEROL 90 MCG/ACT 8GM HFA INHALER INH PRN (17:30)
[2020-10-16 20:04] VITALS: BP 148/78
== END 2020-10-16 20:09 | disposition home or self-care (01) ==
LOC: M ED 15:50
DX: U07.1 COVID-19 (principal); E11.9 Type 2 diabetes mellitus without complications; I10 Essential (primary) hypertension; Z87.891 Personal history of nicotine dependence; Z85.238 Personal history of other malignant neoplasm of thymus; Z79.4 Long term (current) use of insulin; Z79.899 Other long term (current) drug therapy; Z88.5 Allergy status to narcotic agent; Z91.040 Latex allergy status

== ENCOUNTER 2020-10-16 20:32 | Outpatient (CLI) | payer MEDICARE, OTHER ==
--- NOTE | 2020-10-16 17:36 | IPNPDOC ---
Text Note Date of Service The patient was seen on 10/16/20. NOTE Patient is a 64 years old female with past medical history of hypertension, type 2 diabetes presented to hospital for monoclonal antibody infusion. Patient was diagnosed with COVID-19. She complains of rhinorrhea and stuffy nose. Her physical exam pertinent for diminished lung sounds bilaterally. Patient signed a consent for monoclonal antibody infusion. DORON AGUIRRE DO Oct 16, 2020 17:36
[2020-10-16 20:32] VITALS: BP 169/86
[~2020-10-16 20:32] MED LIST changes: +ALBUTEROL 90 MCG/ACT 8GM HFA INHALER INH PRN; +ALBUTEROL SULFATE 2.5 MG/0.5 ML INH NEB SOLN INH PRN; +CARV3.12; +CASIRIVIMAB/IMDEVIMAB 1,200 MG in NS 250 ML IV ONE; +EPINEPHrine INJ 1 MG/ML 1ML AMP IM PRN; +LOSA25TA14; +MAGN400T3; +NS 1,000 ML IV SCH; +diphenhydrAMINE 50MG/ML VIAL (J1200) IV PRN; +methylPREDNISolone 125MG 2ML VIAL IV PRN
[2020-10-16 21:32] VITALS: BP 134/85
[2020-10-16 21:49] VITALS: BP 151/84
[2020-10-16 22:18] VITALS: BP 131/83
[2020-10-16 22:35] VITALS: BP 136/73
[2020-10-16 23:40] VITALS: BP 158/98
== END 2020-10-16 23:55 ==
LOC: M OPCLIICU 20:32
PROVIDERS: ATTEND Internal Medicine
DX: U07.1 COVID-19 (principal); Z88.6 Allergy status to analgesic agent; Z91.040 Latex allergy status

== ENCOUNTER → 2021-01-14 | Outpatient (CLI) | payer MEDICARE, OTHER ==
[~2021-01-14] MED LIST changes: -ALBUTEROL 90 MCG/ACT 8GM HFA INHALER INH PRN; -ALBUTEROL SULFATE 2.5 MG/0.5 ML INH NEB SOLN INH PRN; -CASIRIVIMAB/IMDEVIMAB 1,200 MG in NS 250 ML IV ONE; -EPINEPHrine INJ 1 MG/ML 1ML AMP IM PRN; -MAGN400T3; +MAGN400T33; -NS 1,000 ML IV SCH; -diphenhydrAMINE 50MG/ML VIAL (J1200) IV PRN; -methylPREDNISolone 125MG 2ML VIAL IV PRN
--- NOTE | 2021-01-14 10:00 | REP ---
INDICATION: COPD COMPARISON: 06/15/2019 TECHNIQUE: PA and lateral. FINDINGS: The mediastinum and cardiac silhouette are normal. The lung de leon are clear and without acute consolidation, effusion, or pneumothorax. The skeletal structures are intact and normal. Sternal wires and left axillary node dissection noted. IMPRESSION: No acute cardiopulmonary process. <Electronically signed by Humberto Wright > 01/14/21 [id number]
== END ==
LOC: M WUC 09:50
PROVIDERS: ATTEND Family Medicine
DX: J44.9 Chronic obstructive pulmonary disease, unspecified (principal)

== ENCOUNTER 2021-05-22 13:11 | Inpatient (IN) | payer MEDICARE, OTHER ==
[~2021-05-22] VITALS: Ht 157.5 cm; Wt 71.5 kg
[~2021-05-22 13:11] MED LIST changes: -CARV3.12; +CARV3.12 PO; -D31000TA2 PO; +LOSA25TA13 PO; -LOSA25TA14; -MAGN400T33; +MAGN400T33 PO; -PROC10TA4; -PROC10TA4 PO; +PROC10TA5; +PROC10TA5 PO; +VITA100093 PO
[2021-05-22] MEDS ORDERED: FLUO40CA PO (13:36)
[2021-05-22] MEDS ORDERED: METO5TAB2 PO (13:36)
[2021-05-22] MEDS ORDERED: NS 1,000 ML IV ONE (13:45)
[2021-05-22 14:28] LABS: ABG BASE EXCESS -13.1 (-2.0-2.0); ABG HCO3 11.7 MEQ/L (22.0-26.0); ABG PARTIAL PRESSURE CO2 24.9 mmHg (35.0-45.0); ABG PARTIAL PRESSURE O2 108.1 mmHg (75.0-100.0); ABG STANDARD HCO3 14.4 MEQ/L (22.0-26.0); ABG TOTAL CO2 12.4 MEQ/L (23.0-31.0); ABG pH (ARTERIAL) 7.289 UNITS (7.350-7.450)
[2021-05-22 14:39] LABS: HEMOGLOBIN A1c 9.7 %
[2021-05-22] MEDS ORDERED: INSULIN IV RATE CHANGE DOCUMENTATION ML/HR XX SCH ×3 (14:40→15:30)
[2021-05-22] MEDS ORDERED: INSULIN REGULAR IN 0.9 % NACL 100 UNIT in IV 1 EA IV SCH ×8 (14:40→16:05)
[2021-05-22] MEDS ORDERED: KCL 10MEQ/100ML SWI (KRUN) 10 MEQ in IV 1 EA IV SCH ×2 (14:40→14:46)
[2021-05-22] MEDS ORDERED: POTASSIUM CHLORIDE INJ 20 MEQ in NS 1,000 ML IV SCH (14:50)
[2021-05-22 14:55] LABS: BASO % 0.3 % (0.0-1.0); EOS % 0.3 % (0.0-3.0); HEMATOCRIT 39.7 % (36.0-47.0); HEMOGLOBIN 13.3 g/dl (12.0-15.5); LYMPH # 0.9 10^3/uL (1.5-5.0); MEAN CORPUSCULAR HEMOGLOBIN 30.7 pg (27.0-33.0); MEAN CORPUSCULAR HGB CONC 33.5 g/dl (32.0-36.5); MEAN CORPUSCULAR VOLUME 91.7 fl (80.0-96.0); MONO # 0.8 10^3/uL (0.0-0.8); MONO % 5.1 % (2.0-8.0); NEUTROPHILS # 13.7 10^3/uL (1.5-8.5); NEUTROPHILS % 87.8 % (36.0-66.0); PLATELET COUNT, AUTOMATED 425 10^3/uL (150-450); RED BLOOD COUNT 4.33 10^6/uL (4.00-5.40); WHITE BLOOD COUNT 15.6 10^3/uL (4.0-10.0)
[2021-05-22 15:00] LABS: ACETONE/KETONE > 46.00 MG/DL (<2.81); ALBUMIN 4.1 GM/DL (3.2-5.2); ALT/SGPT 23 U/L (12-78); BILIRUBIN,DIRECT 0.2 MG/DL (0.0-0.2); BILIRUBIN,TOTAL 0.8 MG/DL (0.2-1.0); BLOOD UREA NITROGEN 56 MG/DL (7-18); CALCIUM LEVEL 9.2 MG/DL (8.8-10.2); CARBON DIOXIDE LEVEL 15 MEQ/L (21-32); CHLORIDE LEVEL 90 MEQ/L (98-107); CREATININE FOR GFR 2.66 MG/DL (0.55-1.30); GLUCOSE, FASTING 479 MG/DL (70-100); LIPASE 345 U/L (73-393); MAGNESIUM LEVEL 2.2 MG/DL (1.8-2.4); PHOSPHORUS LEVEL 5.4 MG/DL (2.5-4.9); POTASSIUM SERUM 3.8 MEQ/L (3.5-5.1); SODIUM LEVEL 127 MEQ/L (136-145); TOTAL PROTEIN 7.3 GM/DL (6.4-8.2)
[2021-05-22 15:07] LABS: OSMOLALITY SERUM 313 MOSM/KG (280-301)
[2021-05-22 15:29] LABS: RSV AMPLIFICATION NEGATIVE (NEGATIVE)
[2021-05-22] MEDS ORDERED: MOM 30ML SUSPENSION UDC PO PRN ×2 (15:30)
[2021-05-22] MEDS ORDERED: ACETAMINOPHEN TAB 650MG DOSE (2X325MG) PO PRN ×2 (15:30)
[2021-05-22] MEDS ORDERED: KCL 20MEQ in NS 1000ML 1,000 ML IV SCH (15:32)
[2021-05-22] MEDS: KCL 10MEQ/100ML SWI (KRUN) 10 MEQ in IV 1 EA IV SCH ×2 (15:45→15:52)
[2021-05-22] MEDS ORDERED: OCUVTAB PO (16:00)
[2021-05-22] MEDS ORDERED: HOME MED LIST COMPLETE! XX SCH (16:05)
[2021-05-22 16:36] LABS: VENOUS BASE EXCESS -10.2 (-2.0-2.0); VENOUS HCO3 16.4 MEQ/L (23.0-27.0); VENOUS O2 SATURATION 75.1 % (60.0-80.0); VENOUS PARTIAL PRESSURE CO2 38.5 mmHg (38.0-50.0); VENOUS PARTIAL PRESSURE O2 39.9 mmHg (30.0-50.0); VENOUS PH 7.246 UNITS (7.330-7.430); VENOUS TOTAL CO2 17.5 MEQ/L (24.0-28.0)
[2021-05-22] MEDS ORDERED: MECLIZINE 12.5 MG TAB PO PRN (17:45)
[2021-05-22] MEDS ORDERED: METOCLOPRAMIDE 5 MG TAB PO PRN (17:45)
[2021-05-22 18:00] VITALS: BP 110/61
[2021-05-22] MEDS: INSULIN IV RATE CHANGE DOCUMENTATION ML/HR XX SCH ×4 (18:25→23:00)
[2021-05-22 19:05] LABS: VENOUS BASE EXCESS -6.5 (-2.0-2.0); VENOUS HCO3 19.5 MEQ/L (23.0-27.0); VENOUS O2 SATURATION 82.6 % (60.0-80.0); VENOUS PARTIAL PRESSURE CO2 40.7 mmHg (38.0-50.0); VENOUS PARTIAL PRESSURE O2 45.1 mmHg (30.0-50.0); VENOUS PH 7.298 UNITS (7.330-7.430); VENOUS STANDARD HCO3 18.9 MEQ/L; VENOUS TOTAL CO2 20.7 MEQ/L (24.0-28.0)
[2021-05-22] MEDS: KCL 20MEQ IN D5/NS 1000ML 1,000 ML IV SCH (19:34)
[2021-05-22 19:36] LABS: CALCIUM LEVEL 8.7 MG/DL (8.8-10.2); CREATININE FOR GFR 1.86 MG/DL (0.55-1.30); GLOMERULAR FILTRATION RATE 28.8 (>45); PHOSPHORUS LEVEL 3.7 MG/DL (2.5-4.9)
[2021-05-22 20:00] VITALS: BP 116/56
[2021-05-22 21:00] VITALS: BP 109/57
[2021-05-22] MEDS ORDERED: LEVEMIR (INSULIN DETEMIR) 1 UNITS/0.01ML SC SCH (21:00)
[2021-05-22 22:00] VITALS: BP 107/56
[2021-05-22 23:00] VITALS: BP 126/60
[2021-05-23] VITALS (12 sets, daily range): BP systolic 97–143; BP diastolic 53–78
[2021-05-23] MEDS ORDERED: HumaLOG INSULIN (NovoLOG) PER UNIT SC SCH
[2021-05-23 00:29] LABS: VENOUS BASE EXCESS -6.1 (-2.0-2.0); VENOUS HCO3 20.1 MEQ/L (23.0-27.0); VENOUS O2 SATURATION 68.2 % (60.0-80.0); VENOUS PARTIAL PRESSURE CO2 42.5 mmHg (38.0-50.0); VENOUS PARTIAL PRESSURE O2 34.5 mmHg (30.0-50.0); VENOUS PH 7.293 UNITS (7.330-7.430); VENOUS STANDARD HCO3 18.9 MEQ/L; VENOUS TOTAL CO2 21.4 MEQ/L (24.0-28.0)
[2021-05-23] MEDS: KCL 20MEQ IN D5/NS 1000ML 1,000 ML IV SCH (00:31)
[2021-05-23 00:58] LABS: CALCIUM LEVEL 8.2 MG/DL (8.8-10.2); CREATININE FOR GFR 1.58 MG/DL (0.55-1.30); GLOMERULAR FILTRATION RATE 34.7 (>45); POTASSIUM SERUM 3.9 MEQ/L (3.5-5.1)
[2021-05-23] MEDS ORDERED: GLUCAGON INJ 1MG VIAL SC PRN (02:35)
[2021-05-23] MEDS ORDERED: DEXTROSE 50% 50 ML SYRINGE IV PRN (02:35)
[2021-05-23] MEDS ORDERED: GLUCOSE 4GM CHEW TABLET PO PRN (02:35)
[2021-05-23 05:22] LABS: HEMATOCRIT 31.3 % (36.0-47.0); HEMOGLOBIN 10.8 g/dl (12.0-15.5); MEAN CORPUSCULAR HEMOGLOBIN 30.5 pg (27.0-33.0); MEAN CORPUSCULAR HGB CONC 34.5 g/dl (32.0-36.5); MEAN CORPUSCULAR VOLUME 88.4 fl (80.0-96.0); PLATELET COUNT, AUTOMATED 318 10^3/uL (150-450); RED BLOOD COUNT 3.54 10^6/uL (4.00-5.40); WHITE BLOOD COUNT 7.6 10^3/uL (4.0-10.0)
[2021-05-23] MEDS: LEVOTHYROXINE 150MCG TABLET (0.15MG) PO SCH (05:37)
[2021-05-23 05:46] LABS: ACETONE/KETONE 8.25 MG/DL (<2.81); CALCIUM LEVEL 8.3 MG/DL (8.8-10.2); CREATININE FOR GFR 1.21 MG/DL (0.55-1.30); GLOMERULAR FILTRATION RATE 47.2 (>45); MAGNESIUM LEVEL 2.1 MG/DL (1.8-2.4); PHOSPHORUS LEVEL 2.5 MG/DL (2.5-4.9); POTASSIUM SERUM 3.9 MEQ/L (3.5-5.1)
[2021-05-23] MEDS: HumaLOG INSULIN (NovoLOG) PER UNIT SC SCH ×4 (07:30→20:10)
[2021-05-23] MEDS ORDERED: ENOXAPARIN 40MG/0.4ML SYRINGE (J1650 PER 10MG) SC SCH (09:00)
[2021-05-23] MEDS: ENOXAPARIN 30MG/0.3ML SYRINGE (J1650 PER 10MG) SC SCH (09:08)
[2021-05-23] MEDS: FLUoxetine 20MG CAP PO SCH (09:08)
[2021-05-23] MEDS: OCUVITE 1 TAB PO SCH (09:08)
[2021-05-23] MEDS: VITAMIN D 1,000 INTERNATIONAL UNITS TABLET PO SCH (09:08)
[2021-05-23] MEDS: MAGNESIUM OXIDE 400MG TAB (MAG-OX) PO SCH (09:09)
[2021-05-23] MEDS: LEVEMIR (INSULIN DETEMIR) 1 UNITS/0.01ML SC SCH (20:11)
[2021-05-23] MEDS ORDERED: LEVEMIR (INSULIN DETEMIR) 1 UNITS/0.01ML SC SCH (21:00)
[2021-05-24] MEDS: LEVOTHYROXINE 150MCG TABLET (0.15MG) PO SCH (04:53)
[2021-05-24 05:19] VITALS: BP 148/81
[2021-05-24 06:50] LABS: HEMATOCRIT 33.9 % (36.0-47.0); HEMOGLOBIN 11.6 g/dl (12.0-15.5); MEAN CORPUSCULAR HEMOGLOBIN 31.3 pg (27.0-33.0); MEAN CORPUSCULAR HGB CONC 34.2 g/dl (32.0-36.5); MEAN CORPUSCULAR VOLUME 91.4 fl (80.0-96.0); PLATELET COUNT, AUTOMATED 285 10^3/uL (150-450); RED BLOOD COUNT 3.71 10^6/uL (4.00-5.40); WHITE BLOOD COUNT 3.7 10^3/uL (4.0-10.0)
[2021-05-24] MEDS: HumaLOG INSULIN (NovoLOG) PER UNIT SC SCH ×4 (07:30→21:00)
[2021-05-24 07:40] LABS: BLOOD UREA NITROGEN 19 MG/DL (7-18); CALCIUM LEVEL 9.2 MG/DL (8.8-10.2); CARBON DIOXIDE LEVEL 24 MEQ/L (21-32); CHLORIDE LEVEL 112 MEQ/L (98-107); CREATININE FOR GFR 0.53 MG/DL (0.55-1.30); GLOMERULAR FILTRATION RATE > 60.0 (>45); GLUCOSE, FASTING 40 MG/DL (70-100); POTASSIUM SERUM 3.6 MEQ/L (3.5-5.1); SODIUM LEVEL 144 MEQ/L (136-145)
[2021-05-24] MEDS: OCUVITE 1 TAB PO SCH (08:36)
[2021-05-24] MEDS: ENOXAPARIN 30MG/0.3ML SYRINGE (J1650 PER 10MG) SC SCH (08:36)
[2021-05-24] MEDS: FLUoxetine 20MG CAP PO SCH (08:36)
[2021-05-24] MEDS: VITAMIN D 1,000 INTERNATIONAL UNITS TABLET PO SCH (08:36)
[2021-05-24] MEDS: MAGNESIUM OXIDE 400MG TAB (MAG-OX) PO SCH (08:36)
[2021-05-24 14:00] VITALS: BP 170/90
[2021-05-24] MEDS ORDERED: amLODIPine 5 MG TAB PO ONE (20:00)
[2021-05-24] MEDS: CARVedilol 3.125 MG TAB PO SCH (22:17)
[2021-05-24] MEDS: LEVEMIR (INSULIN DETEMIR) 1 UNITS/0.01ML SC SCH (22:18)
[2021-05-24 22:21] VITALS: BP 173/95
[2021-05-24 23:51] VITALS: BP 160/80
[2021-05-25 05:00] LABS: HEMATOCRIT 32.1 % (36.0-47.0); HEMOGLOBIN 10.9 g/dl (12.0-15.5); MEAN CORPUSCULAR HEMOGLOBIN 30.4 pg (27.0-33.0); MEAN CORPUSCULAR VOLUME 89.4 fl (80.0-96.0); PLATELET COUNT, AUTOMATED 244 10^3/uL (150-450); RED BLOOD COUNT 3.59 10^6/uL (4.00-5.40)
[2021-05-25] MEDS: LEVOTHYROXINE 150MCG TABLET (0.15MG) PO SCH (05:09)
[2021-05-25 05:11] VITALS: BP 160/90
[2021-05-25 05:23] LABS: BLOOD UREA NITROGEN 15 MG/DL (7-18); CALCIUM LEVEL 8.4 MG/DL (8.8-10.2); CARBON DIOXIDE LEVEL 29 MEQ/L (21-32); CHLORIDE LEVEL 109 MEQ/L (98-107); GLOMERULAR FILTRATION RATE > 60.0 (>45); GLUCOSE, FASTING 61 MG/DL (70-100); POTASSIUM SERUM 3.3 MEQ/L (3.5-5.1); SODIUM LEVEL 140 MEQ/L (136-145)
[2021-05-25] MEDS: HumaLOG INSULIN (NovoLOG) PER UNIT SC SCH ×2 (07:30→12:20)
[2021-05-25] MEDS: FLUoxetine 20MG CAP PO SCH (07:52)
[2021-05-25 07:53] VITALS: BP 160/90
[2021-05-25] MEDS: ENOXAPARIN 30MG/0.3ML SYRINGE (J1650 PER 10MG) SC SCH (07:53)
[2021-05-25] MEDS: OCUVITE 1 TAB PO SCH (07:53)
[2021-05-25] MEDS: CARVedilol 3.125 MG TAB PO SCH (07:54)
[2021-05-25] MEDS: MAGNESIUM OXIDE 400MG TAB (MAG-OX) PO SCH (07:55)
[2021-05-25] MEDS: VITAMIN D 1,000 INTERNATIONAL UNITS TABLET PO SCH (07:55)
[2021-05-25] MEDS ORDERED: POTASSIUM CHLORIDE 10MEQ SR TABLET PO ONE (09:00)
[2021-05-25] MEDS ORDERED: amLODIPine 5 MG TAB PO SCH (09:00)
[2021-05-25] MEDS ORDERED: LOSARTAN 25 MG TAB PO SCH (09:00)
[2021-05-25] MEDS ORDERED: AMLO1TAB25 PO (09:18)
[2021-05-25] MEDS ORDERED: TOUJ1.2I SC (09:18)
== END 2021-05-25 13:56 | disposition home health service (06) | DRG 638 ==
LOC: M ED 13:11 → M ED INP 15:29 → ENRESERV 16:34 → M ICU 18:06 → M MSPAV 05-23 23:00
PROVIDERS: ADMIT Internal Medicine; ATTEND Internal Medicine
DX: E11.10 Type 2 diabetes mellitus with ketoacidosis without coma (principal); N17.9 Acute kidney failure, unspecified; R65.10 Systemic inflammatory response syndrome (SIRS) of non-infectious origin without acute organ dysfunction; I10 Essential (primary) hypertension; E03.9 Hypothyroidism, unspecified; E11.65 Type 2 diabetes mellitus with hyperglycemia; E86.0 Dehydration; R42 Dizziness and giddiness; R21 Rash and other nonspecific skin eruption; F03.90 Unspecified dementia, unspecified severity, without behavioral disturbance, psychotic disturbance, mood disturbance, and anxiety; F32.A Depression, unspecified; Z79.4 Long term (current) use of insulin; Z79.899 Other long term (current) drug therapy; Z87.891 Personal history of nicotine dependence; Z85.3 Personal history of malignant neoplasm of breast; Z92.21 Personal history of antineoplastic chemotherapy; Z92.3 Personal history of irradiation; Z88.5 Allergy status to narcotic agent; Z91.040 Latex allergy status

== ENCOUNTER → 2021-09-08 | Outpatient (CLI) | payer MEDICARE, OTHER ==
[~2021-09-08] MED LIST changes: +AMLO1TAB25 PO; +FLUO40CA PO; +METO5TAB2 PO; -TRIA37.53; -TRIA37.53 PO; +TRIA37.577; +TRIA37.577 PO
[2021-09-08 11:14] LABS: HEMATOCRIT 38.3 % (36.0-47.0); MEAN CORPUSCULAR HEMOGLOBIN 30.8 pg (27.0-33.0); MEAN CORPUSCULAR HGB CONC 33.9 g/dl (32.0-36.5); MEAN CORPUSCULAR VOLUME 90.8 fl (80.0-96.0); PLATELET COUNT, AUTOMATED 299 10^3/uL (150-450); RED BLOOD COUNT 4.22 10^6/uL (4.00-5.40); WHITE BLOOD COUNT 5.3 10^3/uL (4.0-10.0)
[2021-09-08 13:26] LABS: ALBUMIN 3.4 GM/DL (3.2-5.2); ALT/SGPT 14 U/L (12-78); BILIRUBIN,TOTAL 0.4 MG/DL (0.2-1.0); BLOOD UREA NITROGEN 11 MG/DL (7-18); CALCIUM LEVEL 9.3 MG/DL (8.8-10.2); CARBON DIOXIDE LEVEL 26 MEQ/L (21-32); CHLORIDE LEVEL 102 MEQ/L (98-107); CHOLESTEROL LEVEL 225 MG/DL (<200); CHOLESTEROL RISK RATIO 3.571 (<5); CREATININE FOR GFR 0.86 MG/DL (0.55-1.30); GLOMERULAR FILTRATION RATE > 60.0 (>45); GLUCOSE, FASTING 410 MG/DL (70-100); HDL CHOLESTEROL 63 MG/DL (>40); LDL CHOLESTEROL 138 MG/DL (<100); NON-HDL-C 162 MG/DL; POTASSIUM SERUM 3.7 MEQ/L (3.5-5.1); SODIUM LEVEL 138 MEQ/L (136-145); TOTAL 25(OH) VITAMIN D 20.1 NG/ML (30.0-100.0); TOTAL PROTEIN 6.6 GM/DL (6.4-8.2); TRIGLYCERIDES LEVEL 118 MG/DL (<150)
[2021-09-08 16:05] LABS: HEMOGLOBIN A1c 10.5 %
== END ==
LOC: M RAD 10:07
PROVIDERS: ATTEND Family Medicine
DX: I10 Essential (primary) hypertension (principal)

== ENCOUNTER → 2021-10-19 | Outpatient (CLI) | payer MEDICARE, OTHER ==
[~2021-10-19] MED LIST changes: +ALBU8.5H INH; +BUDE10.7 INH; +FLUO1TAB3 PO; +INSU100V2 SQ; +PANT40TA29 PO
== END ==
LOC: M WHC 10:56
PROVIDERS: ATTEND Family Medicine
DX: E07.9 Disorder of thyroid, unspecified (principal)

== ENCOUNTER → 2021-12-25 | Outpatient (REF) | payer MEDICARE, OTHER ==
[~2021-12-25] MED LIST changes: -DOXY-350 PO; +DOXY-444 PO
== END ==
LOC: M LAB REF 14:34
PROVIDERS: ATTEND Internal Medicine Endocrinology, Diabetes & Metabolism
DX: E04.2 Nontoxic multinodular goiter (principal); Z12.4 Encounter for screening for malignant neoplasm of cervix
CPT/HCPCS: 88173; G0123

== ENCOUNTER → 2022-02-22 | Outpatient (CLI) | payer MEDICARE, OTHER | LOC: M RAD 10:39 | PROVIDERS: ATTEND Internal Medicine Pulmonary Disease | DX: R91.8 Other nonspecific abnormal finding of lung field (principal) ==

== ENCOUNTER → 2022-08-09 | Outpatient (REF) | payer MEDICARE, OTHER | LOC: M LAB REF 15:27 | PROVIDERS: ATTEND Nurse Practitioner Family | DX: E10.65 Type 1 diabetes mellitus with hyperglycemia (principal) ==

== ENCOUNTER → 2022-09-02 | Outpatient (REF) | payer MEDICARE, OTHER ==
[~2022-09-02] MED LIST changes: -INSU100V2 SQ; +INSU100V6 SQ
== END ==
LOC: M LAB REF 17:36
PROVIDERS: ATTEND Internal Medicine Endocrinology, Diabetes & Metabolism
DX: E04.1 Nontoxic single thyroid nodule (principal)

== ENCOUNTER → 2022-09-09 | Outpatient (CLI) | payer MEDICARE, OTHER ==
[2022-09-09 10:40] LABS: HEMATOCRIT 47.9 % (36.0-47.0); HEMOGLOBIN 16.2 g/dl (12.0-15.5); MEAN CORPUSCULAR HEMOGLOBIN 30.3 pg (27.0-33.0); MEAN CORPUSCULAR HGB CONC 33.8 g/dl (32.0-36.5); MEAN CORPUSCULAR VOLUME 89.5 fl (80.0-96.0); PLATELET COUNT, AUTOMATED 147 10^3/uL (150-450); RED BLOOD COUNT 5.35 10^6/uL (4.00-5.40); WHITE BLOOD COUNT 4.4 10^3/uL (4.0-10.0)
[2022-09-09 10:53] LABS: INR 0.95; PROTHROMBIN TIME 12.9 SECONDS (12.5-14.5)
[2022-09-09 11:09] LABS: HEMOGLOBIN A1c 8.9 % (4.0-6.0)
[2022-09-09 11:11] LABS: ALBUMIN 3.9 G/DL (3.2-5.2); ALKALINE PHOSPHATASE 83 U/L (46-116); ALT/SGPT < 9 U/L (7.0-40); AST/SGOT < 8 U/L (<34); BILIRUBIN,TOTAL 0.9 MG/DL (0.3-1.2); BLOOD UREA NITROGEN 14 MG/DL (9-23); CALCIUM LEVEL 9.4 MG/DL (8.3-10.6); CARBON DIOXIDE LEVEL 29 MMOL/L (20-31); CHLORIDE LEVEL 99 MMOL/L (98-107); CHOLESTEROL LEVEL 204 MG/DL (<200); CREATININE FOR GFR 0.68 MG/DL (0.55-1.30); GLOMERULAR FILTRATION RATE > 60.0 (>45); GLUCOSE, FASTING 222 MG/DL (74-106); HDL CHOLESTEROL 63.6 MG/DL (>40); LDL CHOLESTEROL 120.4 MG/DL (<100); NON-HDL-C 140.4 MG/DL; SODIUM LEVEL 137 MMOL/L (136-145); THYROID STIMULATING HORMONE 19.194 uIU/ML (0.55-4.78); TOTAL PROTEIN 6.6 G/DL (5.7-8.2); TRIGLYCERIDES LEVEL 100 MG/DL (<150)
== END ==
LOC: M RAD 09:39
PROVIDERS: ATTEND Family Medicine
DX: I10 Essential (primary) hypertension (principal); Z79.01 Long term (current) use of anticoagulants

== ENCOUNTER → 2022-09-28 | Outpatient (CLI) | payer MEDICARE, OTHER ==
[~2022-09-28] MED LIST changes: +xyzal PO
[2022-09-28 16:49] LABS: POTASSIUM SERUM 4.4 MMOL/L (3.5-5.1)
[2022-09-28 16:53] LABS: THYROID STIMULATING HORMONE 0.409 uIU/ML (0.55-4.78)
== END ==
LOC: M LAB 15:32
PROVIDERS: ATTEND Family Medicine
DX: E11.9 Type 2 diabetes mellitus without complications (principal)

== ENCOUNTER → 2022-10-28 | Outpatient (CLI) | payer MEDICARE, OTHER ==
[~2022-10-28] MED LIST changes: +MECL-209 PO; -MECL1TAB31 PO
[2022-10-28 12:55] LABS: HEMATOCRIT 40.8 % (36.0-47.0); MEAN CORPUSCULAR HEMOGLOBIN 30.4 pg (27.0-33.0); MEAN CORPUSCULAR HGB CONC 34.3 g/dl (32.0-36.5); MEAN CORPUSCULAR VOLUME 88.5 fl (80.0-96.0); PLATELET COUNT, AUTOMATED 327 10^3/uL (150-450); RED BLOOD COUNT 4.61 10^6/uL (4.00-5.40); WHITE BLOOD COUNT 6.6 10^3/uL (4.0-10.0)
[2022-10-28 13:12] LABS: PROTHROMBIN TIME 12.9 SECONDS (12.5-14.5)
[2022-10-28 13:21] LABS: ALBUMIN 3.9 G/DL (3.2-5.2); ALKALINE PHOSPHATASE 89 U/L (46-116); ALT/SGPT 11 U/L (7.0-40); AST/SGOT 11 U/L (<34); BILIRUBIN,TOTAL 0.7 MG/DL (0.3-1.2); BLOOD UREA NITROGEN 17 MG/DL (9-23); CALCIUM LEVEL 9.7 MG/DL (8.3-10.6); CARBON DIOXIDE LEVEL 28 MMOL/L (20-31); CHLORIDE LEVEL 104 MMOL/L (98-107); CREATININE FOR GFR 0.58 MG/DL (0.55-1.30); GLOMERULAR FILTRATION RATE > 60.0 (>45); GLUCOSE, FASTING 73 MG/DL (74-106); POTASSIUM SERUM 3.9 MMOL/L (3.5-5.1); SODIUM LEVEL 138 MMOL/L (136-145); TOTAL PROTEIN 6.8 G/DL (5.7-8.2)
[2022-10-28 13:22] LABS: TOTAL 25(OH) VITAMIN D 29.5 NG/ML (20.0-100.0)
[2022-10-28 13:32] LABS: HEMOGLOBIN A1c 8.1 % (4.0-6.0)
== END ==
LOC: M LAB 11:50
PROVIDERS: ATTEND Family Medicine
DX: I10 Essential (primary) hypertension (principal); Z79.01 Long term (current) use of anticoagulants

== ENCOUNTER → 2023-09-06 | Outpatient (CLI) | payer MEDICARE, OTHER ==
[~2023-09-06] MED LIST changes: +DOXY-440 PO; -DOXY-444 PO
[2023-09-06 14:46] LABS: HEMATOCRIT 38.7 % (36.0-47.0); HEMOGLOBIN 13.2 g/dl (12.0-15.5); MEAN CORPUSCULAR HEMOGLOBIN 30.2 pg (27.0-33.0); MEAN CORPUSCULAR HGB CONC 34.1 g/dl (32.0-36.5); MEAN CORPUSCULAR VOLUME 88.6 fl (80.0-96.0); PLATELET COUNT, AUTOMATED 281 10^3/uL (150-450); RED BLOOD COUNT 4.37 10^6/uL (4.00-5.40); WHITE BLOOD COUNT 4.6 10^3/uL (4.0-10.0)
[2023-09-06 15:11] LABS: ALBUMIN 3.7 G/DL (3.2-5.2); ALKALINE PHOSPHATASE 110 U/L (46-116); ALT/SGPT 13 U/L (7.0-40); AST/SGOT 10 U/L (<34); BILIRUBIN,TOTAL 0.6 MG/DL (0.3-1.2); BLOOD UREA NITROGEN 19 MG/DL (9-23); CALCIUM LEVEL 9.2 MG/DL (8.3-10.6); CARBON DIOXIDE LEVEL 26 MMOL/L (20-31); CHLORIDE LEVEL 104 MMOL/L (98-107); CHOLESTEROL LEVEL 214 MG/DL (<200); CREATININE FOR GFR 0.68 MG/DL (0.55-1.30); GLOMERULAR FILTRATION RATE > 60.0 (>45); GLUCOSE, FASTING 220 MG/DL (74-106); HDL CHOLESTEROL 73.6 MG/DL (>40); NON-HDL-C 140.4 MG/DL; SODIUM LEVEL 136 MMOL/L (136-145); TOTAL PROTEIN 6.5 G/DL (5.7-8.2); TRIGLYCERIDES LEVEL 92 MG/DL (<150)
[2023-09-06 15:13] LABS: THYROID STIMULATING HORMONE 12.237 uIU/ML (0.55-4.78); TOTAL 25(OH) VITAMIN D 16.4 NG/ML (20.0-100.0)
[2023-09-06 15:19] LABS: HEMOGLOBIN A1c 9.9 % (4.0-6.0)
== END ==
LOC: M RAD 13:35
PROVIDERS: ATTEND Family Medicine
DX: I10 Essential (primary) hypertension (principal); R53.83 Other fatigue

== ENCOUNTER → 2024-09-24 | Outpatient (CLI) | payer MEDICARE, OTHER ==
[2024-09-24 11:05] LABS: BASO # 0.1 10^3/uL (0.0-0.2); BASO % 1.7 % (0.0-1.0); EOS # 0.5 10^3/uL (0.0-0.5); EOS % 9.8 % (0.0-3.0); LYMPH # 1.6 10^3/uL (1.5-5.0); LYMPH % 29.9 % (24.0-44.0); MONO # 0.5 10^3/uL (0.0-0.8); MONO % 9.2 % (2.0-8.0); NEUTROPHILS # 2.6 10^3/uL (1.5-8.5); NEUTROPHILS % 49.0 % (36.0-66.0); PLATELET COUNT, AUTOMATED 356 10^3/uL (150-450)
[2024-09-24 11:32] LABS: CHOLESTEROL LEVEL 195.0 MG/DL (<200); CHOLESTEROL RISK RATIO 3.39 (<5); LDL CHOLESTEROL 119.9 MG/DL (<100); NON-HDL-C 137.5 MG/DL; TRIGLYCERIDES LEVEL 88.0 MG/DL (<150)
[2024-09-24 11:35] LABS: FREE T4 1.71 NG/DL (0.89-1.76)
[2024-09-24 11:38] LABS: ESTIMATED AVERAGE GLUCOSE 186.0 MG/DL (60-110)
== END ==
LOC: M LAB 10:11
PROVIDERS: ATTEND Student in an Organized Health Care Education/Training Program
DX: Z00.00 Encounter for general adult medical examination without abnormal findings (principal); E13.9 Other specified diabetes mellitus without complications

== ENCOUNTER → 2024-12-10 | Outpatient (CLI) | payer MEDICARE, OTHER | LOC: M RAD 08:14 | PROVIDERS: ATTEND Student in an Organized Health Care Education/Training Program | DX: E13.9 Other specified diabetes mellitus without complications (principal) | CPT/HCPCS: 78264; A9541 ==